=== PATIENT | female | born 1950 | race Caucasian/White ===

== ENCOUNTER 2022-10-04 09:15 | Outpatient (RCR) | payer MEDICARE, SELFPAY | END 2022-10-22 16:00 | disposition home or self-care (01) | PROVIDERS: PCP Family Medicine; Visit Provider Family Medicine | DX: M25.512 Pain in left shoulder (principal); Z51.89 Encounter for other specified aftercare | CPT/HCPCS: 97110; 97162 ==

== ENCOUNTER 2022-11-30 09:26 | Outpatient (RCR) | payer MEDICARE, SELFPAY ==
--- NOTE | 2022-11-27 10:44 | URNOTE ---
Request received for authorization for Rituxan ([id number]). Prior authorization is not required as services are based on medical necessity and follow Medicare guidelines.
[2022-11-30 09:49] VITALS: BP 131/87; PULSE 84; RESP 16; TEMP 36.1; O2SAT 95
[2022-11-30] MEDS: ACETAMINOPHEN 325 MG TABLET 975 MG PO (10:02)
[2022-11-30] MEDS: diphenhydrAMINE 25 MG CAPSULE 50 MG PO (10:02)
[2022-11-30] MEDS: METHYLPREDNISOLONE SOD SUCC 62.5 MG/ML (125) 125 MG IVP (10:13)
== END 2023-05-29 23:59 | disposition home or self-care (01) ==
LOC: CCIC 09:26
PROVIDERS: PCP Family Medicine; Referring Provider Family Medicine; Visit Provider Clinical Nurse Specialist
DX: M06.9 Rheumatoid arthritis, unspecified (principal)
CPT/HCPCS: 96376; 96413; 96415; A9270; J2930; J7030; J9312

== ENCOUNTER 2023-04-25 13:00 | Outpatient (RCR) | payer MEDICARE, SELFPAY | END 2023-08-23 23:59 | disposition home or self-care (01) | PROVIDERS: PCP Family Medicine; Visit Provider Family Medicine | DX: S76.311A Strain of muscle, fascia and tendon of the posterior muscle group at thigh level, right thigh, initial encounter (principal); S86.111A Strain of other muscle(s) and tendon(s) of posterior muscle group at lower leg level, right leg, initial encounter; H81.10 Benign paroxysmal vertigo, unspecified ear; Z51.89 Encounter for other specified aftercare | CPT/HCPCS: 95992; 97110; 97140; 97162; 97535 ==

== ENCOUNTER 2023-10-08 09:15 | Outpatient (RCR) | payer MEDICARE, SELFPAY | END 2024-02-05 23:59 | disposition home or self-care (01) | PROVIDERS: PCP Family Medicine; Visit Provider Physician Assistant | DX: H81.13 Benign paroxysmal vertigo, bilateral (principal); H81.93 Unspecified disorder of vestibular function, bilateral; Z51.89 Encounter for other specified aftercare | CPT/HCPCS: 97110; 97140; 97162 ==

== ENCOUNTER 2024-01-14 08:19 | Outpatient (RCR) | payer MEDICARE, SELFPAY ==
--- NOTE | 2024-01-07 13:52 | URNOTE ---
PRior auth is not required for Jacobo ([id number]). Pt has medicare, services are based on medical necessity and follow medicare guidelines.
[2024-01-14] VITALS (9 sets, daily range): BP systolic 96–145; BP diastolic 57–91; PULSE 61–77; RESP 16; TEMP 36.3–36.7; O2SAT 94–97
[2024-01-14] MEDS: ACETAMINOPHEN 325 MG TABLET 975 MG PO (08:57)
[2024-01-14] MEDS: diphenhydrAMINE 25 MG CAPSULE 50 MG PO (08:57)
[2024-01-14] MEDS: METHYLPREDNISOLONE SOD SUCC 62.5 MG/ML (125) 125 MG IVP (09:00)
[2024-01-14] MEDS: RITUXIMAB-ABBS (Truxima) 1,000 MG, TUBING PRIMARY 1 EACH in 0.9 % SODIUM CHLORIDE 1000 ... 50 MG IV (09:46)
== END 2024-07-12 23:59 | disposition home or self-care (01) ==
LOC: CCIC 08:19
PROVIDERS: PCP Family Medicine; Referring Provider Family Medicine; Visit Provider Internal Medicine Hematology & Oncology
DX: M06.9 Rheumatoid arthritis, unspecified (principal); M81.0 Age-related osteoporosis without current pathological fracture
CPT/HCPCS: 96376; 96413; 96415; A9270; J2930; J7030; Q5115

== ENCOUNTER 2024-11-27 08:35 | Outpatient (RCR) | payer MEDICARE, SELFPAY ==
[2024-11-27 08:50] VITALS: BP 123/81; PULSE 87; RESP 18; TEMP 36.6; O2SAT 98
[2024-11-27] MEDS: ACETAMINOPHEN 325 MG TABLET 975 MG PO (09:18)
[2024-11-27] MEDS: METHYLPREDNISOLONE SOD SUCC 62.5 MG/ML (125) 125 MG IVP (09:18)
[2024-11-27] MEDS: 0.9 % SODIUM CHLORIDE 500 ML IV (09:37)
[2024-11-27] MEDS: SODIUM CHLORIDE 0.9 % (FLUSH) 10 ML SYRINGE IVF (09:37)
[2024-11-27] MEDS: RITUXIMAB-ABBS (Truxima) 1,000 MG, TUBING PRIMARY 1 EACH in 0.9 % SODIUM CHLORIDE 1000 ... 50 MG IV (09:51)
== END 2025-05-26 23:59 | disposition home or self-care (01) ==
LOC: CCIC 08:35
PROVIDERS: PCP Family Medicine; Referring Provider Family Medicine; Visit Provider Clinical Nurse Specialist
DX: M06.9 Rheumatoid arthritis, unspecified (principal); M81.0 Age-related osteoporosis without current pathological fracture
CPT/HCPCS: 96375; 96413; 96415; A9270; J2919; J7030; Q5115

== ENCOUNTER 2025-01-20 12:41 | Inpatient (IN) | payer MEDICARE, SELFPAY ==
[2025-01-20] VITALS (29 sets, daily range): BP systolic 104–145; BP diastolic 56–104; PULSE 68–79; RESP 18–20; TEMP 36.1–37.1; O2SAT 95–100; BMI 20.3; BMI 21.8
--- NOTE | 2025-01-20 | CRLHL7_ITS ---
For Patients: As a result of the Century Cures Act, medical imaging exams and procedure reports are released immediately into your electronic medical record. You may view this report before your referring provider. If you have questions, please contact your health care provider. Indication: SOB, COUGH Technique: AP view of the chest. Comparison: None. Findings: Low lung volumes. Normal cardiomediastinal silhouette. No focal consolidation, pleural effusions, or visualized pneumothorax. Impression: No acute cardiopulmonary disease. Dictated by Candelario Gallardo MD @ 01/20/2025 3:50:42 PM (Electronically Signed)
--- OUTSIDE RECORDS SUMMARY | 2025-01-20 12:43 | XMS_ITS | Clinical Summary ---
Author Organization [facility] Address [address] [place] [address] Care Team Providers Care Lead Ruby On Rails Developer Name Role Phone Darling Wharton MD Primary Care Provider [phone] Source Comments You are receiving this document as you are listed as the primary care provider,follow-up provider, or the patient has been referred to you for consultation.This is in compliance with the Medicare and[facility] EHR Incentive Program,which states Providers who transition their patient to another setting of careor provider of care or refers their patient to another provider of care shouldprovide summary care record for each transition of care or referral. Auto I.D. Allergies Active Allergy Reactions Criticality Noted Date Comments Review Contrast Media 08/13/2007 PN: LW CM1: >>> NO CONTRAST ADVERSE REACTION <<< Reaction : Medications levothyroxine (SYNTHROID) 112 MCG tablet Take 1 tablet by mouth daily (every 24 hours). LW Addl Instr:MUST GET FURTHER REFILLS FROM PRIMARY DOCTOR. Indicated for: Hypothyroidism 30 1 12/25/19 07 Active acetaminophen (TYLENOL ARTHRITIS) 650 MG controlled release tablet Take 1 Tablet (650 mg) by mouth. 01/09/20 16 Active alendronate (FOSAMAX) 70 MG tablet Take 1 Tablet (70 mg) by mouth once every week. Active lisinopril-hy droCHLOROthia zide (PRINZIDE) 20-25 MG tablet Take 1 Tablet by mouth daily. Active folic acid 1 MG tablet take 1 tablet by mouth every day 90 Tablet 3 06/25/20 24 Active predniSONE (DELTASONE) 5 MG tablet For RA flare: take 15 mg daily x1 wk, 10 mg daily x1 wk, then 5 mg daily x1 wk, then stop 42 Tablet 1 11/03/20 24 Active methotrexate 2.5 MG tabletIndicat ions:Rheumato id arthritis involving multiple sites with positive rheumatoid factor (HRC) TAKE 6 TABLETS BY MOUTH ONCE EVERY WEEK. 72 Tablet 1 12/28/19 25 Active methotrexate 2.5 MG tabletIndicat ions:Rheumato id arthritis involving multiple sites with positive rheumatoid factor (HRC) TAKE 6 TABLETS BY MOUTH ONCE EVERY WEEK. 72 Tablet 1 07/06/20 24 2024 Discontinued Active Problems Problem Noted Date Diagnosed Date Prediabetes 08/01/2023 Post-menopausal osteoporosis 10/06/2020 Long-term use of immunosuppressant medication Lymphoma 06/10/2012 Hx of splenectomy 02/15/2012 Iron deficiency anemia, unspecified 03/06/2007 Osteoporosis 03/06/2007 Hypothyroidism 03/06/2007 Rheumatoid arthritis 04/24/2003 Overview (07/10/2017): Arthritis Rheumatoid Encounters Date Type Department Care Team Description 12/26/2024 Refill Rheumatology at [address] [address] Alla Hunt MD Refill (methotrexate 2.5 MG tablet [Pharmacy Med Name: METHOTREXATE 2.5 MG TABLET]) 11/05/2024 Notes/Orders Rheumatology at [address] [address] Alla Hunt MD 11/03/2024 11:45 AM CONCRETE PILE DRIVER OPERATOR Lab Visit [place] [address] [place] [address] Rheumatoid arthritis involving multiple sites with positive rheumatoid factor (HRC); High risk medication use 11/03/2024 11:25 AM CONCRETE PILE DRIVER OPERATOR Ancillary Procedure [place] [address] [place] [address] Alla Hunt MD Rheumatoid arthritis involving multiple sites with positive rheumatoid factor (HRC) 11/03/2024 10:45 AM CONCRETE PILE DRIVER OPERATOR Office Visit Rheumatology at [address] [place] [address] Alal Hunt MD Rheumatoid arthritis involving multiple sites with positive rheumatoid factor (HRC) (Primary Dx); High risk medication use; Osteoporosis without pathological fracture (HRC); Lymphoma, unspecified body region, unspecified lymphoma type (HRC) 11/03/2024 Notes/Orders Rheumatology at [address] [address] Alla Hunt MD from Last 3 Months Immunizations Immunization Administration Dates Next Due Flu Vac (3+ yrs) 08/03/2013, 2,08/21/2011,2009,09/10/2007,09/18/2006,09/09/2006,1 11/24/2004 Flu Vac Preserv Free (3+yrs) 08/08/2009 H1n1 Miv Sanofi 3+ Yr (Injected) 11/28/2009 Influenza IIV3 (Trivalent) [facility] 65+ [facility] ([address]) 08/02/2020,09/02/2019,07/23/2018,2016,08/08/2016,08/04/2015,08/03/2014 Influenza IIV4 (Quadrivalent ) Fluad, 65+ Yrs 07/31/2023,07/27/2022 Influenza IIV4 (Quadrivalent ) Fluzone, 65+ Yrs 07/22/2021 Influenza aIIV3 65+ Years (Fluad) 2023,08/02/2020,08/26/2019,2016 Influenza, Unspecified Formulation 08/02/2020, Moderna COVID-19 12+ 08/05/2024,09/20/2023 Moderna Monovalent 12+ 06/11/2022,2020,03/16/2021,2020 PCV13 (Prevnar) 01/06/2015 PPSV23 (Pneumovax) 01/09/2016,11/14/1999 RSV Arexvy 09/23/2024 Td (7+ yrs) 12/07/2003 Td (Tdvax) 12/07/2003 Tdap 04/27/2024,12/24/2013 Zoster (Zostavax) 07/02/2011 Zoster RZV (Shingrix) 05/19/2019,02/16/2019 Social History Tobacco Use Types Packs/Day Years Used Date Smoking Tobacco: Never Smokeless Tobacco: Never Comments Unknown Sex and Gender Information Value Date Recorded Sex Assigned at Not on file Legal Sex Female 9:40 AM CDT Gender Identity Not on file Sexual Orientation Not on file Last Filed Vital Signs Vital Sign Reading Time Taken Comments Blood Pressure 123/85 11/03/2024 10:26 AM CONCRETE PILE DRIVER OPERATOR Pulse 87 11/03/2024 10:26 AM CONCRETE PILE DRIVER OPERATOR Temperature 36.4 C (97.6 F) 10/06/2020 10:50 AM CONCRETE PILE DRIVER OPERATOR Respiratory Rate 20 01/01/2018 11:13 AM CONCRETE PILE DRIVER OPERATOR Oxygen Saturation - - Inhaled Oxygen Concentration - - Weight 49.4 kg (109 lb) 11/03/2024 10:26 AM CONCRETE PILE DRIVER OPERATOR Height 157.5 cm (5' 2) 10/23/2022 11:37 AM CONCRETE PILE DRIVER OPERATOR pt reported. Body Mass Index 19.94 10/23/2022 11:37 AM CONCRETE PILE DRIVER OPERATOR Plan of Treatment Upcoming Encounters Date Type Department Care Team (Late st Contact Info) Description 05/04/2025 11:45 AM CDT Telemedicine Rheumatology at [place] [address] [place] [address]. [place] [address] Alla Hunt MD [address] [place] [id number] Health Maintenance Due Date Last Done Comments Medicare Annual Wellness Visit 1950 Hib (1 of 1 - Risk 1-dose series) 01/20/1950 MCV4 (1 - Risk 2-dose series) 1950 Meningococcal B (1 of 5 - Increased Risk) 1958 COVID-19 Vaccine ( season) 2025 08/05/2024, 09/20/2023, 06/11/2022, Additional history exists Prediabetes: HGBA1C 08/05/2025 08/05/2024, DTaP/Tdap/Td (3 - Tdap) 04/27/2034 04/27/20, 12/24/2013, 12/07/2003 Pneumococcal 50+ Yrs Completed 01/09/2016, 01/06/2015, 11/14/1999 Zoster/Shingles Completed 05/19/2019, 04/11/2018, 07/02/2011 Hep C Screening (Preventive Services) Completed 10/23/2022 Dexa Completed 07/31/2023, 07/19, 07/26/2021, Additional history exists Influenza Completed 08/05/2024, 07/19, 07/27/2022, Additional history exists RSV Completed 09/23/2024 HepA Aged Out No longer eligi ble based on patient's age to complete this topic HepB Aged Out No longer eligi ble based on patient's age to complete this topic IPV (Polio) Aged Out No longer eligi ble based on patient's age to complete this topic Procedures Procedure Name Priority Date/Time Associated Diagnosis Comments COMPLETE BLOOD COUNT-W/DIFF Routine 11/03/2024 11:43 AM CONCRETE PILE DRIVER OPERATOR Rheumatoid arthritis involving multiple sites with positive rheumatoid factor (HRC) High risk medication use IMMUNOGLOBULINS (G,A,M) Routine 11/03/20 11:43 AM CONCRETE PILE DRIVER OPERATOR Rheumatoid arthritis involving multiple sites with positive rheumatoid factor (HRC) High risk medication use C-REACTIVE PROTEIN Routine 11/03/2024 11 :43 AM CONCRETE PILE DRIVER OPERATOR Rheumatoid arthritis involving multiple sites with positive rheumatoid factor (HRC) High risk medication use SEDIMENTATION RATE (ESR) Routine 11/03/2024 11:43 AM CONCRETE PILE DRIVER OPERATOR Rheumatoid arthritis involving multiple sites with positive rheumatoid factor (HRC) High risk medication use CREATININE / GFR Routine 11/03/2024 11:4 3 AM CONCRETE PILE DRIVER OPERATOR Rheumatoid arthritis involving multiple sites with positive rheumatoid factor (HRC) High risk medication use ALT (SGPT) Routine 11/03/2024 11:43 AM CONCRETE PILE DRIVER OPERATOR Rheumatoid arthritis involving multiple sites with positive rheumatoid factor (HRC) High risk medication use CBC AND DIFFERENTIAL PANEL Routine 11/03/2024 11:43 AM CONCRETE PILE DRIVER OPERATOR Rheumatoid arthritis involving multiple sites with positive rheumatoid factor (HRC) High risk medication use XR HANDS 1 VIEW BILAT ARTHRITIS Routine 11/03/2024 11:26 AM CONCRETE PILE DRIVER OPERATOR Rheumatoid arthritis involving multiple sites with positive rheumatoid factor (HRC) HEPATITIS C ANTIBODY, WITH REFLEX Routine 10/23/2022 12:59 PM CONCRETE PILE DRIVER OPERATOR Rheumatoid arthritis involving multiple sites with positive rheumatoid factor (HRC) High risk medication use from Last 3 Months or Most Recently Relevant to Health Maintenance Results * Creatinine / GFR (11/03/2024 11:43 AM CONCRETE PILE DRIVER OPERATOR) Creatinine 0.65 0.55 - 1.02 mg/dL 11/03/2024 12:56 PM [place] [address] [facility]ORY GFR, Estimated >60 >60 mL/min/1.7 3m2 11/03/2024 12:56 PM CONCRETE PILE DRIVER OPERATOR [place] [address] [facility] Blood Venipuncture / Unknown 11/03/2024 11:43 AM CONCRETE PILE DRIVER OPERATOR 11/03/2024 11:43 AM CONCRETE PILE DRIVER OPERATOR us Alla Hunt MD LAB_1 Final Resu lt Performing Organization Address City/State/[facility] Co de Phone Number [place] [address] [place] [phone], [facility] * (ABNORMAL) Complete Blood Count-W/Diff (11/03/2024 11:43 AM [facility]) WBC 7.8 3.5 - 10.5 x10(9)/L 11/03/2024 12:03 PM CONCRETE PILE DRIVER OPERATOR [facility] 385 LABORATORY RBC 4.69 3.90 - 5.03 x10(12)/L 11/03/2024 12:03 PM [facility] 3850 LABORATORY Hemoglobin 14.9 12.0 - 15.5 g/dL 11/03/2024 12:03 PM [place] [address] [facility] HCT 45.1(H) 34.9 - 44.5 % 11/03/2024 12:03 PM [place] [address] [facility] MCV 96.2 80.0 - 100.0 fL 11/03/2024 12:03 PM [place] [address] [facility] MCH 31.8 27.6 - 33.3 pg 11/03/2024 12:03 PM [place] [address] [facility] MCHC 33.0 31.5 - 35.2 g/dL 11/03/2024 12:03 PM [place] [address] [facility] RDW 15.2 11.9 - 15.5 % 11/03/2024 12:03 PM [place] [address] [facility] Platelets 354 150 - 450 x10(9)/L 11/03/2024 12:03 PM [place] [address] [facility] Automated NRBC 0 <=0 /100 WBC 11/03/2024 12:03 PM [place] [address] [facility] Neutrophil Absolute 5.4 1.7 - 7.0 10(9)/L 11/03/2024 12:03 PM [place] [address] [facility] Lymphocyte Absolute 1.3 1.0 - 4.8 10(9)/L 11/03/2024 12:03 PM [place] [address] [facility] Monocyte Absolute 0.9 0.2 - 0.9 10(9)/L 11/03/2024 12:03 PM [place] [address] [facility] Eosinophil Absolute 0.2 0.0 - 0.5 10(9)/L 11/03/2024 12:03 PM [place] [address] [facility] Basophil Absolute 0.1 0.0 - 0.3 10(9)/L 11/03/2024 12:03 PM [place] [address] [facility] Immature Granulocyte % 0.3 0.0 - 0.5 % 11/03/2024 12:03 PM [place] [address] [facility] Blood Venipuncture / Unknown 11/03/2024 11:43 AM CONCRETE PILE DRIVER OPERATOR 11/03/2024 11:43 AM CONCRETE PILE DRIVER OPERATOR us Alla Hunt MD LAB_1 Final Resu lt Performing Organization Address [facility] Co de Phone Number [facility] 3850 LABORATORY [address] [place] [address], [facility] * Immunoglobulins (G,A,M) (11/03/2024 11:43 AM CONCRETE PILE DRIVER OPERATOR) IgA, Serum 170 69 - 517 mg/dL 11/03/2024 4:54 PM CONCRETE PILE DRIVER OPERATOR [facility] IgG, Serum 633 552 - 1,631 mg/dL 11/03/2024 4:54 PM CONCRETE PILE DRIVER OPERATOR [facility] IgM, Serum 45 33 - 293 mg/dL 11/03/2024 4:54 PM CONCRETE PILE DRIVER OPERATOR [facility] Blood Venipuncture / Unknown 11/03/2024 11:43 AM CONCRETE PILE DRIVER OPERATOR 11/03/2024 11:43 AM CONCRETE PILE DRIVER OPERATOR Alla Hunt MD LAB_1 Final [facility] Performing Organization Address [facility] de Phone Number [facility] [address] [place], [place] [address] * C-Reactive Protein (11/03/2024 11:43 AM CONCRETE PILE DRIVER OPERATOR) Pathologist [facility] C-Reactive Protein <0.5 0.0 - 0.5 mg/dL 11/03/2024 12:56 PM CONCRETE PILE DRIVER OPERATOR [place] [address] [facility] Blood Venipuncture / Unknown 11/03/2024 11:43 AM CONCRETE PILE DRIVER OPERATOR 11/03/2024 11:43 AM CONCRETE PILE DRIVER OPERATOR us Alla Hunt MD LAB_1 Final Resu Performing Organization Address [facility] de Phone Number [facility] [address] LABORATORY [address] [place] [address], [facility] * ALT (SGPT) (11/03/2024 11:43 AM CONCRETE PILE DRIVER OPERATOR) ALT (SGPT) 17 <=55 U/L 11/03/2024 12:56 PM CONCRETE PILE DRIVER OPERATOR [facility] 385 LABORATORY Blood Venipuncture / Unknown 11/03/2024 11:43 AM CONCRETE PILE DRIVER OPERATOR 11/03/2024 11:43 AM CONCRETE PILE DRIVER OPERATOR us Alla Hunt MD LAB_1 Final Resu lt Performing Organization Address [facility] Co de Phone Number [place] [address] LABORATORY [address] [place] [address], [facility] * ESR (11/03/2024 11:43 AM CONCRETE PILE DRIVER OPERATOR) [facility] Signature Sedimentation Rate 6 0 - 20 mm/hr 11/03/2024 12:55 PM CONCRETE PILE DRIVER OPERATOR [facility] 385 LABORATORY Blood Venipuncture / Unknown 11/03/2024 11:43 AM CONCRETE PILE DRIVER OPERATOR 11/03/2024 11:43 AM CONCRETE PILE DRIVER OPERATOR us Alla Hunt MD LAB_1 Final Resu lt Performing Organization Address [facility] de Phone Number [place] [address] [facility]OR[facility]ORY [address] [place] [address], [facility] * XR Hands 1 View Bilat Arthritis (11/03/2024 11:26 AM CONCRETE PILE DRIVER OPERATOR) Anatomical Region Laterality Modality Upper Extremity, Hand Digital Ra diography 11/03/2024 11:2 1 AM CONCRETE PILE DRIVER OPERATOR Narrative 11/03/2024 1:47 PM CONCRETE PILE DRIVER OPERATOR COMPARISON: 12/06/2010 FINDINGS: Symmetric bilateral carpal collapse/destruction with distal migration of the radius and advanced arthritic changes of the radiocarpal and carpometacarpal joints compatible with sequelae of advanced rheumatoid arthritis. Presumed marked erosive changes of the distal ulna bilaterally. There is moderate arthrosis of the right first through third MCP joints. Mild arthrosis of the first through third left MCP joints. The interphalangeal joint spaces of both hands are relatively preserved. Procedure Note Gautam Hankins MD - 11/03/2024 COMPARISON: 12/06/2010 FINDINGS: Symmetric bilateral carpal collapse/destruction with distal migration ofthe radius and advanced arthritic changes of the radiocarpal andcarpometacarpal joints compatible with sequelae of advanced rheumatoidarthritis. Presumed marked erosive changes of the distal ulna bilaterally.There is moderate arthrosis of the right first through third MCP joints.Mild arthrosis of the first through third left MCP joints. Theinterphalangeal joint spaces of both hands are relatively preserved. Alla Hunt MD RAD GD Final Resu lt * Hepatitis C Antibody, with Reflex (10/23/2022 12:59 PM CONCRETE PILE DRIVER OPERATOR) Hepatitis C Antibody Negative (Non Reactive) Negative (Non Reactive) 10/23/2022 10:28 PM CONCRETE PILE DRIVER OPERATOR [facility] Comment:Antibodies to HCV no t detected. Does not exclude the possiblity of exposure to HCV. Blood Venipuncture / Unknown 10/23/2022 12:59 PM CONCRETE PILE DRIVER OPERATOR 10/23/2022 12:59 PM CONCRETE PILE DRIVER OPERATOR Alla Hunt MD LAB_1 Final Resu lt [facility] [address] from Last 3 Months or Most Recently Relevant to Health Maintenance Insurance MEDICARE Care Teams Lead Ruby On Rails Developer Relationship Specialty Start Date End Date Darling Wharton MD [address] [place] [address] PCP - General Family Practice 01/01/18
--- OUTSIDE RECORDS SUMMARY | 2025-01-20 12:43 | XMS_ITS ---
Author Organization [employer] Address [address] [place] [address] Care Team Providers Care Leather Cleaner Name Role Phone Darling Wharton MD Primary Care Provider [phone] Active Problems Problem Noted Date Diagnosed Date Prediabetes 08/01/2023 Post-menopausal osteoporosis 10/06/2020 Long-term use of immunosuppressant medication Lymphoma 06/10/2012 Hx of splenectomy 02/15/2012 Iron deficiency anemia, unspecified 03/06/2007 Osteoporosis 03/06/2007 Hypothyroidism 03/06/2007 Rheumatoid arthritis 04/24/2003 Overview (07/10/2017): Arthritis Rheumatoid Current Treatment and Therapy Plans No current plan information found. Other Current Plans riTUXimab IV infusion - FIXED DOSE* Plan Start Date:01/01/2024 Plan Provider:Alla Hunt MD Linked Problems Rheumatoid arthritis involvi ng multiple sites with positive rheumatoid factor (HRC) Treatment Medications acetaminophen (TYLENOL)ALBUt marquita sulfate HFAalteplase (CATHFLO ACTIVASE)diphenhydrAMINE (BENADRYL)EPINEPHrine (EPIPEN)famotidine (PEPCID)heparinheparin PF (Pork)meperidine (DEMEROL)methylPREDNISolone sodium succinate PF (SOLU-medrol)ritTUXimab-pvvr (RUXIENCE) infusion 251mg-1000mgsodium chloride 0.9 %sodium chloride 0.9% Past Treatment and Therapy Plans
--- OUTSIDE RECORDS SUMMARY | 2025-01-20 12:43 | XMS_ITS | Encounter Summary ---
Author Organization [employer] Address [address] [place] [address] Care Team Providers Care Packing Tractor Machine Operator Name Role Phone Darling Wharton MD Primary Care Provider [phone] Reason for Visit * Reason Comments Refill methotrexate 2.5 MG tablet [Pharmacy Med Name: METHOTREXATE 2.5 MG TABLET] Encounter Details Date Type Department Care Team (Late st Contact Info) Description 12/26/2024 Refill Rheumatology at [address] [place] [address] Catie Hunt MD [address] [place] [id number] Refill (methotrexate 2.5 MG tablet [Pharmacy Med Name: METHOTREXATE 2.5 MG TABLET]) Social History Tobacco Use Types Packs/Day Years Used Date Smoking Tobacco: Never Smokeless Tobacco: Never Comments Unknown Sex and Gender Information Value Date Recorded Sex Assigned at Not on file Legal Sex Female 9:40 AM CDT Gender Identity Not on file Sexual Orientation Not on file documented as of this encounter Nursing Notes * Beatriz House RN - 12/28/2024 7:03 AM CST Renewed medication per medication refill standing order. Requested Prescriptions Signed Prescriptions Disp Refills methotrexate 2.5 MG tablet 72 Tablet 1 Sig: TAKE 6 TABLETS BY MOUTH ONCE EVERY WEEK. Authorizing Provider: CATIE HUNT Ordering User: [facility] * Zacarias Desouza [employer] - 12/26/2024 9:38 AM CST methotrexate 2.5 MG tablet [Pharmacy Med Name: METHOTREXATE 2.5 MG TABLET] Medication started: 03/05/2019 Last ordered by CATIE HUNT A: 07/06/2024 (173 days ago) QTY: 72, Refills: 1, Sig: take 6 tablets by mouth once every week. (unchanged) -> Refill x 3 months (until due for a(n) ALT check, CBC w/ Diff check, Cr check and eGFR check) Last qualifying visit: 11/03/2024 (in Rheumatology) Next scheduled visit: 05/04/2025 (in Rheumatology) Cr: 0.65 mg/dL on 11/03/2024 ALT: 17 U/L on 11/03/2024 CBC w/ Diff: Completed on 11/03/2024 eGFR: >60 ml/min on 11/03/2024 [employer] Embedded Refills, Reference: [id number], 12/26/2024 9:38:11 AM Cain VENTURA: RHEUM PN REFILL [[id number]] ([id number]) ER documented in this encounter Plan of Treatment Upcoming Encounters Date Type Department Care Team (Late st Contact Info) Description 05/04/2025 11:45 AM CDT Telemedicine Rheumatology at [address] [facility] [place] [address] Catie Hunt MD [address] [place] [address] documented as of this encounter Visit Diagnoses Diagnosis Rheumatoid arthritis involving multiple sites with positive rheumatoid factor (HRC) documented in this encounter Care Teams Packing Tractor Machine Operator Relationship Specialty Start Date End Date aDrling Wharton MD [address] [place] [address] PCP - General Family Practice 01/01/18 documented as of this encounter
--- OUTSIDE RECORDS SUMMARY | 2025-01-20 12:43 | XMS_ITS | Clinical Summary ---
Author Organization [facility] Address [address] [place] [id number] Care Team Providers Care Supervisor Delivery Department Name Role Phone Jung Newman MD, Melissa Jean MD Primary Care Provider [phone] Allergies Active Allergy Reactions Criticality Noted Date Comments Unlisted Allergen (Include Detail In Comments) Runny Nose 03/26/2023 Environmental Allergies Medications acetaminophen SR (TYLENOL ARTHRITIS PAIN) 650 mg Extended-Release tablet Take 1 tablet by mouth every 8 hours if needed. Max acetaminophen dose: 4000mg in 24 hrs. 0 01/09/20 16 Active methotrexate (RHEUMATREX) 2.5 mg tabletIndication s:Rheumatoid arthritis involving right ankle with positive rheumatoid factor (HC) Take 6 tablets by mouth once weekly. 32 tablet 2 08/31/20 16 Active medication order composer RITUXAN infusion in Nov, 2022. Patient receives RITUXAN Q yearly and usually in November at [facility] and though an Upper Extremity. 0 03/18/20 23 Active folic acid 1 mg tabletIndication s:Rheumatoid arthritis, involving unspecified site, unspecified whether rheumatoid factor present (HC) Take 1 Tablet (1 mg) by mouth once daily. 90 Tablet 3 04/17/20 24 Active calcium-vitamin D3-vitamin K (Viactiv) 650 mg-12.5 mcg-40 mcg chewIndications: Osteoporosis, unspecified osteoporosis type, unspecified pathological fracture presence Chew 1 Tablet by mouth two times daily. 180 Tablet 3 08/05/20 24 Active alendronate (FOSAMAX) 70 mg tabletIndication s:Osteoporosis, unspecified osteoporosis type, unspecified pathological fracture presence Take 1 Tablet (70 mg) by mouth once a week in the morning. Take on empty stomach with full glass of water. Do not lie down for 1 hr. 13 Tablet 3 08/05/20 24 Active lisinopril-hydro chlorothiazide, 20-25 mg, (PRINZIDE, ZESTORETIC) 20-25 mg per tabletIndication s:HTN (hypertension) Take 1 Tablet by mouth once daily. 90 Tablet 3 08/05/20 24 Active levothyroxine (SYNTHROID) 88 mcg tabletIndication s:Hypothyroidism , unspecified type Take 1 Tablet (88 mcg) by mouth before breakfast. 90 Tablet 09/11/20 24 Active predniSONE (DELTASONE) 20 mg tabletIndication s:Acute midline low back pain with left-sided sciatica Take with food in mornin tabs daily for 3 days, 1 tab daily for 3 days, and 1/2 tab daily for 4 days. 11 Tablet 01/12/20 25 Active Active Problems Problem Noted Date Diagnosed Date History of non-Hodgkin's lymphoma 04/01/2024 Hyperlipidemia 04/01/2024 PSVT (paroxysmal supraventricular tachycardia) 0 04/01/2024 HTN (hypertension) 04/01/2024 Prediabetes 08/01/2023 Chronic pain of right knee 12/14/2015 Overview (12/20/2015): Previous right knee aspiration and cortisone injection by Dr. Piña. Ultrasound guidance used for some of these injections. November 2015: Right knee aspirated by Dr. Abdullahi Lang with cortisone injection. Joint fluid analysis was negative for crystals. 1 week post injection pain 100%, swelling gone. Adenomatous colon polyp 08/04/2015 Overview (12/30/2020): Colonoscopy 07/2015 polyp repeat in 5 years Colonoscopy 12/2020 polyp, repeat in 7 years Hx of splenectomy 02/15/2012 Unspecified essential hypertension 04/21/2007 Rheumatoid arthritis(714.0) 03/06/2007 Symptomatic inflammatory kristian gerardo in diseases classified elsewhere 03/06/2007 Unspecified hypothyroidism 03/06/2007 Osteoporosis, unspecified 03/06/2007 Iron deficiency anemia, unspecified 03/06/2007 Resolved Problems Problem Noted Date Diagnosed Date Resolved Date Lymphoma 12/18/2012 04/01/2024 Overview (03/26/2023): Diagnosed 2011. Followed for 5 years following diagnosis by oncology (Dr. Wray). 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 Office Visit [facility] [address] [place] [address] Sherice Olivas PA Back Pain 01/12/2025 Travel from Last 3 Months Immunizations Name Administration Dates Next Due COVID-19 VACCINE SPIKEVAX (M ODERNA 50MCG/0.5ML) 12YO+ PFS 08/05/2024 COVID-19 vaccine (Moderna 100mcg/0.5mL) PF, MDV 06/11/2022,10/27/2021,03/16/2021,2020 Influenza A (H1N1), Inactivated 11/28/2009 Influenza, High-dose Inactivated 019,07/23/2018,08/06/2017,2015,08/04/2015,08/03/2014 Influenza, High-dose Quadriv alent Inactivated 07/22/2021 Influenza, IIV3 (Age 6-35 mos) 08/08/2009 Influenza, IIV3 (Age >=3 years) 08/03/20 13,07/31/2012,08/21/2011,2009,09/10/2007,09/18/2006,09/09/2006,1 11/24/2004 Influenza, Inactivated AIIV4 (Age 65+ Years) Preserv Free 07/31/2023,07/27/2022 Influenza, Inactivated IIV3 (Age 65+ Years) Preserv Free 08/05/2024,08/02/2020 Pneumococcal Poly,23-Valent (Pneumovax) 01/09/2016,11/14/1999 Pneumococcal conj 13-Valent (Prevnar 13) 01/06/2015 Td (Age >=7 Years) 12/07/2003 Tdap 04/27/2024,12/24/2013 Zoster (Shingrix-RZV, recombinant) 05/19/2019, Zoster (Zostavax-ZVL, live) 07/02/2011 Family History Medical History Relation Name Comments Good Health Brother 2 Good Health Brother 3 Cancer-breast Maternal Aunt Stroke Maternal Grandfather Heart Disease Maternal Grandmother Asthma Paternal Grandmother Other Sister 1 MS Cancer-breast Sister 2 Good Health Sister 2 Cancer-ovarian No Family History Relation Name Status Comments Brother 1 MELANOMA Brother 2 Brother 3 Father (Age 41) farm accid ent Maternal Aunt Maternal Grandfather Maternal Grandmother Mother (Age 60s) ACCIDENT Paternal Grandmother Sister 1 Sister 2 Social History Tobacco Use Types Packs/Day Years Used Date Smoking Tobacco: Never Smokeless Tobacco: Never Tobacco Cessation:Counseling Given: Yes Alcohol Use Standard Drinks/Week Comments No 0 (1 standard drink = 0.6 oz pur e alcohol) PHQ-2 Answer Date Recorded PHQ-2 TOTAL SCORE 0 08/05/2024 Social Connections Answer Date Recorded Do you often feel lonely or isolated from those around you? 0 01/12/2025 Financial Resource Strain Answer Date R ecorded Difficulty of Paying Living Expenses 3 01/12/2025 Difficulty of Paying Living Expenses Not on file 01/12/2025 Food Insecurity Answer Date Recorded Do you worry your food will run out before you are able to buy more? 1 01/12/2025 Transportation Needs Answer Date Record ed Does lack of transportation keep you from medica l appointments? 1 01/12/2025 Does lack of transportation keep you from work, meetings or getting things that you need? 1 01/12/2025 Housing Stability Answer Date Recorded What is your housing situation today? 1 01/12/2025 Utilities Answer Date Recorded Do you have trouble paying f or utilities (for example, heat, electricity, water, phone)? 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 Gender Identity Not on file Sexual Orientation Not on file Occupation Industry Job Start Date Job End Date Not on file Not on file Not on file Not on file Obstetrics History Last Filed Vital Signs Vital Sign Reading Time Taken Comments Blood Pressure 152/91 01/12/2025 2:21 PM BONDING MACHINE SETTER Pulse 85 01/12/2025 2:21 PM BONDING MACHINE SETTER Temperature 36.9 C (98.4 F) 02/14/2024 9:58 AM CDT Respiratory Rate 20 03/26/2023 12:56 PM CDT Oxygen Saturation 98% 01/12/2025 2:21 PM BONDING MACHINE SETTER Inhaled Oxygen Concentration - - Weight 50.5 kg (111 lb 6.4 oz) 01/12/2025 2:21 P M BONDING MACHINE SETTER Height 157.6 cm (5' 2.05) 08/05/2024 8:25 AM CD T Body Mass Index 20.34 08/05/2024 8:25 AM CDT Plan of Treatment Health Maintenance Due Date Last Done Comments RSV vaccine for adults or (1 - 1-dose 75+ series) 2023 COVID-19 vaccine series ( season) 2024 08/05/2024, 09/20/2023, 06/11/2022, Additional history exists BMI (ht and wt on same day) for age 18+ 08/05/2025 08/05/2024, 07/31/2023, 03/26/2023, Additional history exists Depression screening for age 12+ 08/05/2025 08/05/2024, 08/01/2023, 07/31/2023, Additional history exists Medicare Wellness for age 65+ 08/06/2025, 07/31/2023, 07/27/2022, Additional history exists Tetanus booster 04/27/2034 04/27/2024, 0204/2014, 12/24/2013, Additional history exists Pneumococcal series for age 50+ Completed 01/09/2016, 01/06/2015, 01/06/2015, Additional history exists Zoster (shingles) series for age 50+ Completed 05/19/2019, 02/16/2019, 07/02/2011 Hepatitis C screening for ag e 18-79 Completed 06/01/2020 DEXA/DXA scan for age 65+ Completed 2022, 07/26/2021, 05/01/2018, Additional history exists Tdap Completed 04/27/2024, 12/24/2013 Influenza for age 65+ Completed 08/05/2024 , 07/31/2023, 07/27/2022, Additional history exists Procedures Procedure Name Priority Date/Time Associated Diagnosis Comments XR DXA BONE DENSITY 2 SITES AXIAL Routine 07/31/2023 11:16 AM CDT Osteoporosis, unspecified osteoporosis type, unspecified pathological fracture presence ANTI HCV Routine 06/01/2020 10:33 AM CDT Encounter for hepatitis C screening test for low risk patient from Last 3 Months or Most Recently Relevant to Health Maintenance Results * (ABNORMAL) XR DXA BONE DENSITY 2 SITES AXIAL (07/31/2023 11:16 AM CDT) Anatomical Region Laterality Modality Spine, HIPS, HIPL, HIPR Other Impressions 08/05/2023 8:28 AM CDT Osteoporosis. RECOMMENDATIONS: The National Osteoporosis Foundation recommends pharmacologic treatment for patients with T-scores of -2.5 or less, patients with prior history of fragility fractures, or patients with 10-year probability of greater than 3% at hips or greater than 20% of suffering major osteoporotic fractures. Recommend continued optimization of calcium and vitamin D intake through dietary means and/or supplementation and regular exercise. Consider pharmacologic therapy for osteoporosis. Follow-up bone density reading in 2 years if therapy initiated to assess therapeutic efficacy. Patient reported discontinuing fosamax, bone density mildly declined. Aurelia Sotelo PA-C [facility] 08/05/2023 Narrative 08/05/2023 8:28 AM CDT For Patients: Results are automatically released to your [facility] account once available, in compliance with federal regulations. This means that you may see your results before your provider has had a chance to review them. Please allow 2-3 business days for your provider to comment on the results. XR DXA Bone Mineral Density (BMD) EXAM LOCATION: [address] [address] PATIENT NAME: Rosie Reynaga DATE OF : 1950 EXAM DATE: 07/31/2023 REQUESTING PROVIDER: Darling Wharton MD GENDER AT : female HEIGHT: 5' 2.28 (07/31/2023) WEIGHT: 109 lb 12.8 oz (07/31/2023) MENOPAUSAL STATUS: Postmenopausal RACE/ETHNICITY: White RISK FACTORS: History of Fragility Fracture (at a major site), Rheumatoid Arthritis, Weight < 127 lbs., and White Race CURRENT MEDICATION FOR BONE LOSS: NONE INDICATION: Follow-up of existing osteoporosis COMPARISON DATE(S): 2020 DXA scans are compared to prior studies for a patient only when the two (or more) studies were performed on the same scanner. It is not possible to compare data generated on one scanner to data from another because there are not standards in DXA equipment. This applies even if the two scanners are made by the same environmental maintenance worker. PROCEDURE: Dual-energy x-ray absorptiometry performed with routine technique. Reporting is completed in the form of a T-score. The T-score represents the standard deviation from peak bone mass based on young healthy adult. A Z-score is used for diagnosis in premenopausal women, and for men under the age of 50. FINDINGS: RESULT LUMBAR SPINE L2 - L4 BMD: 1.086 g/cm2 T-Score: - 0.9 Z-Score: + 1.3 Change from prior in 2020: Decrease 1.2% RESULTS FEMUR Left femoral neck BMD: 0.702 g/cm2 T-Score: - 2.4 Z-Score: - 0.2 Change from prior in 2020: Decrease 3.0% Right femoral neck BMD: 0.744 g/cm2 T-Score: - 2.1 Z-Score: + 0.1 Change from prior in 2020: Increase 1.8%. Left hip BMD: 0.716 g/cm2 T-Score: - 2.3 Z-Score: - 0.2 Change from prior in 2020: Increase 1.0%. Right hip BMD: 0.661 g/cm2 T-Score: - 2.8 Z-Score: - 0.7 Change from prior in 2020: Decrease 1.0%. WHO criteria: Normal: T-score at or above -1 SD Osteopenia: T-score between -1.1 and -2.4 SD Osteoporosis: T-score at or below -2.5 SD FRAX RISK CALCULATION (USED FOR OSTEOPENIA ONLY): 10-year probability of major osteoporotic fracture: 26.2%. 10-year probability of hip fracture: 8.9%. us Darling Wharton MD DEXA Final Resul t * ANTI HCV (06/01/2020 10:33 AM CDT) HEPATITIS C ANTIBODY Non-React candy Non-React candy 06/01/2020 6:08 PM CDT [facility] [employer] [facility] Comment:Antibodies to HCV no t detected; does not exclude the possibility of exposure to HCV. Blood BLOOD SPECIMEN / Unknown Venipuncture / Unknown 06/01/2020 10:33 AM CDT 06/01/2020 10:33 AM CDT us Darling Wharton MD SEND OUTS Final Resul t [facility] 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
--- OUTSIDE RECORDS SUMMARY | 2025-01-20 12:43 | XMS_ITS | Encounter Summary ---
Author Organization [facility] Address [address] [place] [address] Care Team Providers Care Revenue Integrity Analyst Name Role Phone Darling Wharton MD Primary Care Provider [phone] Reason for Visit * Reason Comments Refill Encounter Details Date Type Department Care Team (Late st Contact Info) Description 07/04/2016 Refill Rheumatology at [address] [address] Jung Newman MD Refill Social History Tobacco Use Types Packs/Day Years Used Date Smoking Tobacco: Never Assessed Comments Unknown Sex and Gender Information Value Date Recorded Sex Assigned at Not on file Legal Sex Female 9:40 AM CDT Gender Identity Not on file Sexual Orientation Not on file documented as of this encounter Nursing Notes * Petty Orellana RN - 07/04/2016 9:53 AM CDT Last visit 04/25/16 Future visit 10/25/16 Last filled: 06/15/15 #270 R-3 Renewed medication per medication refill protocol. Requested Prescriptions Pending Prescriptions Disp Refills ??? folic acid 1 mg tablet [Pharmacy Med Name: Folic Acid Oral Tablet 1 MG] 270 tablet 3 Sig: Take 3 tablets by mouth daily (every 24 hours). documented in this encounter Plan of Treatment Upcoming Encounters Date Type Department Care Team (Late st Contact Info) Description 05/04/2025 11:45 AM CDT Telemedicine Rheumatology at [place] [address] [address] [facility] [place] [address] Alla Hunt MD [address] [place] [address] documented as of this encounter Visit Diagnoses Not on filedocumented in this encounter Care Teams Revenue Integrity Analyst Relationship Specialty Start Date End Date Darling Wharton MD [address] [place] [address] PCP - General Family Practice 01/01/18 documented as of this encounter
--- NOTE | 2025-01-20 13:36 | CRLHL7_ITS ---
For Patients: As a result of the Cures Act, medical imaging exams and procedure reports are released immediately into your electronic medical record. You may view this report before your referring provider. If you have questions, please contact your health care provider. INDICATION: Fall, left hip and pelvis pain TECHNIQUE: Single view pelvis with AP and frogleg views of the left hip. COMPARISONS: None available. FINDINGS: Femoral heads are well-seated in the acetabula. There is a mildly displaced intertrochanteric fracture. No other displaced injuries are identified. Mild degenerative changes of the bilateral hips. The soft tissues are unremarkable. IMPRESSION: Minimally displaced intertrochanteric fracture of the left hip. Dictated by Zane Nick MD @ 01/20/2025 3:00:34 PM (Electronically Signed)
--- NOTE | 2025-01-20 13:38 | ED_ITS ---
HPI - General Adult General Chief complaint: Hip Injury/Pain Stated complaint: Fall, hip pain Time Seen by Provider: 01/20/25 12:43 History of Present Illness HPI narrative: [age] white female was out going to the mailbox today trying to be careful but slipped and fell on her left hip. She was unable to bear weight. Has pain in her left lateral hip. No anterior left hip pain. She has had hypertension. Osteoporosis and rheumatoid arthritis. She has been on a prednisone burst for a flare in her sciatic symptoms on the left but that was getting better. She does take alendronate Synthroid lisinopril hydrochlorothiazide and methotrexate. She had no chest pain or syncope prior to the fall. The patient simply slipped. She was brought in by her nephew. Related Data Home Medications ?Medication ?Instructions ?Recorded ?Confirmed alendronate 70 mg tablet 70 mg PO QWEEK 11/27/24 01/20/25 folic acid 1 mg tablet 1 mg PO DAILY 11/27/24 01/20/25 levothyroxine 88 mcg tablet 88 mcg PO DAILY 11/27/24 01/20/25 lisinopril 20 1 tab PO DAILY 11/27/24 01/20/25 mg-hydrochlorothiazide 25 mg tablet methotrexate sodium 2.5 mg tablet 15 mg PO QWEEK 11/27/24 01/20/25 acetaminophen 500 mg tablet 500 - 1,000 mg PO Q6H PRN 01/20/25 01/20/25 calcium 500 mg tablet 500 mg PO DAILY 01/20/25 01/20/25 prednisone 20 mg tablet 10 mg PO DAILY 01/20/25 01/20/25 Allergies Allergy/AdvReac Type Severity Reaction Status Date / Time No Known Drug Allergies Allergy Verified 01/20/25 12:52 Review of Systems Status of ROS: Reports: 6 or more systems reviewed and unremarkable except as noted in History and below [facility] Medical History (Updated 01/20/25 @ 18:23 by Viola Magaña MD) Hypothyroidism ?E03.9 - Hypothyroidism, unspecified (ICD-10) Lymphoma ?C85.90 - Non-Hodgkin lymphoma, unspecified, unspecified site (ICD-10) Skin cancer ?C44.90 - Unspecified malignant neoplasm of skin, unspecified (ICD-10) Social History What is your current living situation?: I presently have a place to live Problems where you live: no known problems Problems where you live details: N/A In the past 12 months, utilities in danger of being shut off: no In past 12 months, lack of transportation kept you from medical appts, meetings, work, or getting things needed for daily living: no In the past 12 mos, have been you worried that your food would run out before you had money to buy more?: never true In the past 12 mos, the food you bought just didn't last and you didn't have m oney to buy more?: never true Highest level of school completed/degree received: high school graduate Smoking Status: Never smoker Do you use any of these nicotine containing products: None Second hand tobacco smoke exposure: No How often do you have a drink containing alcohol: never How often do you have six or more drinks on one occasion: Never AUDIT-C Alcohol total score: 0 Non-prescribed substance use: denies use How often does anyone, including family, friends and others, physically hurt you : never How often does anyone, including family, friends and others, insult or talk down to you: never How often does anyone, including family, friends and others, threaten you with harm: never How often does anyone, including family, friends and others, scream or curse at you: never service: No Exam Narrative: Exam Narrative: Objective: In general patient is in mild dissection discomfort vital signs are largely within normal limits. Alert orient x3 HEENT and neck are unremarkable Back chest abdomen unremarkable Pelvis shows some tenderness over the lateral hip over the greater trochanteric area on the left no obvious bruising or open wounds. No buttock tenderness or anterior hip pain on the left She is able to internal external rotate fairly well with her left hip and flex extend but with flexion to past 45 past 90? she has significant pain in her lateral hip. Distal CMS is intact the left lower extremity, the leg is not shortened or rotated. Const: Vital Signs, click to edit/add: Vital Signs - 24 hr 01/20/25 12:53 01/20/25 12:56 01/20/25 12:57 Temperature 97.1 F L Pulse Rate 72 75 Pulse Rate [Pulse Oximeter] 75 Respiratory Rate 18 Blood Pressure 145/79 H Blood Pressure [Le ft Upper Arm] 145/79 H Pulse Oximetry 100 100 100 Oxygen Delivery Me thod Room Air 01/20/25 13:00 01/20/25 13:02 01/20/25 13:04 Temperature Pulse Rate 73 75 72 Pulse Rate [Pulse Oximeter] Respiratory Rate Blood Pressure 129/100 H 121/84 Blood Pressure [Le ft Upper Arm] Pulse Oximetry 100 99 99 Oxygen Delivery Me thod 01/20/25 13:15 01/20/25 13:30 01/20/25 13:33 Temperature Pulse Rate 72 73 70 Pulse Rate [Pulse Oximeter] Respiratory Rate Blood Pressure 142/78 H Blood Pressure [Le ft Upper Arm] Pulse Oximetry 98 98 97 Oxygen Delivery Me thod 01/20/25 13:45 01/20/25 14:00 01/20/25 14:02 Temperature Pulse Rate 74 74 70 Pulse Rate [Pulse Oximeter] Respiratory Rate Blood Pressure 131/80 Blood Pressure [Le ft Upper Arm] Pulse Oximetry 97 98 98 Oxygen Delivery Me thod 01/20/25 14:29 01/20/25 14:30 01/20/25 14:32 Temperature Pulse Rate 78 75 73 Pulse Rate [Pulse Oximeter] Respiratory Rate Blood Pressure 143/68 H Blood Pressure [Le ft Upper Arm] Pulse Oximetry 97 98 97 Oxygen Delivery Me thod 01/20/25 14:45 01/20/25 15:00 01/20/25 15:02 Temperature Pulse Rate 74 78 79 Pulse Rate [Pulse Oximeter] Respiratory Rate Blood Pressure 143/81 H Blood Pressure [Le ft Upper Arm] Pulse Oximetry 97 97 96 Oxygen Delivery Me thod 01/20/25 15:15 01/20/25 15:30 01/20/25 15:33 Temperature Pulse Rate 78 72 76 Pulse Rate [Pulse Oximeter] Respiratory Rate Blood Pressure 123/56 L Blood Pressure [Le ft Upper Arm] Pulse Oximetry 95 95 97 Oxygen Delivery Me thod 01/20/25 15:34 01/20/25 15:45 01/20/25 16:00 Temperature Pulse Rate 76 78 74 Pulse Rate [Pulse Oximeter] Respiratory Rate Blood Pressure Blood Pressure [Le ft Upper Arm] Pulse Oximetry 98 99 97 Oxygen Delivery Me thod 01/20/25 16:02 01/20/25 16:15 Temperature Pulse Rate 75 79 Pulse Rate [Pulse Oximeter] Respiratory Rate Blood Pressure 128/104 H Blood Pressure [Le ft Upper Arm] Pulse Oximetry 97 96 Oxygen Delivery Me thod Course Vital Signs Vital signs: Initial Vital Signs Temperature 97.1 F L 01/20/25 12:53 Temperature Source Temporal Artery Scan 01/20/25 12:53 Pulse Rate 75 01/20/25 12:53 Pulse Rhythm Regular 01/20/25 12:53 Respiratory Rate 18 01/20/25 12:53 Blood Pressure 145/79 H 01/20/25 12:53 Blood Pressure Mean 101 01/20/25 12:53 Blood Pressure Position Supine 01/20/25 12:53 Pulse Oximetry 100 01/20/25 12:53 Oxygen Delivery Method Room Air 01/20/25 12:53 Vital Signs Temperature 97.1 F L 01/20/25 12:53 Pulse Rate 75 01/20/25 12:53 Respiratory Rate 18 01/20/25 12:53 Blood Pressure 145/79 H 01/20/25 12:53 Pulse Oximetry 100 01/20/25 12:53 Oxygen Delivery Method Room Air 01/20/25 12:53 Temperature 98.7 F 01/20/25 17:46 Pulse Rate 78 01/20/25 17:46 Respiratory Rate 20 01/20/25 17:46 Blood Pressure 127/58 L 01/20/25 17:46 Pulse Oximetry 98 01/20/25 17:46 Oxygen Delivery Method Room Air 01/20/25 17:46 Medications Administered Medications: Generic Name Dose Route Start Last Admin Trade Name Freq PRN Reason Stop Dose Admin Acetaminophen 650 mg 01/20/25 16:42 01/20/25 16:53 Acetaminophen 325 Mg Tablet PO 650 mg Q8H CATY Administration Sodium Chloride 1,000 mls @ 75 mls/hr 01/20/25 16:42 01/20/25 16:52 0.9 % Sodium Chloride 1000 Ml IV 01/21/25 06:01 75 mls/hr .[id number] CATY Administration Morphine Sulfate 4 mg 01/20/25 16:42 01/20/25 16:53 Morphine 4 Mg/Ml Inj IVP 4 mg Q4H PRN Administration Pain Discontinued Medications Generic Name Dose Route Start Last Admin Trade Name Freq PRN Reason Stop Dose Admin Sodium Chloride 500 mls @ 500 mls/hr 01/20/25 13:35 01/20/25 14:44 0.9 % Sodium Chloride 500 Ml IV 01/20/25 14:34 Infused .Q1H ONE Infusion Morphine Sulfate 2 mg 01/20/25 13:45 01/20/25 13:44 Morphine 2 Mg/Ml Inj IVP 01/20/25 13:46 2 mg ONCE ONE Administration Morphine Sulfate 2 mg 01/20/25 13:42 01/20/25 14:40 Morphine 2 Mg/Ml Inj IVP 01/20/25 13:43 2 mg ONCE ONE Administration Medical Decision Making MDM Narrative Medical decision making narrative: [age] year white female with osteoporosis rheumatoid arthritis, has a fall on the left hip. Rule out fracture. Patient will get an x-ray of the pelvis and left hip, for completeness will get an EKG and labs. Ortho consult as necessary. Will assess weight-bearing if it looks negative. Addendum 2:48 p.m. patient has an EKG that shows normal sinus rhythm possible bifascicular block. No acute ST T wave changes. EKGs by my read. The patient on x-ray by my read has the intertroch fracture on the left mildly displaced. Pain control, NPO status, orthopedic consultation. Will be admitted to the hospitalist for probable surgery. Lab Data Labs: Lab Results 01/20/25 Range/Units 13:30 WBC 11.43 H (4.50-11.00) K/uL RBC 4.23 (4.00-5.20) m/uL Hgb 13.6 (12.0-16.0) gm/dL Hct 41.1 (33.0-51.0) % MCV 97 (80-100) fL MCH 32 (26-34) pg MCHC 33 (32-36) gm/dL RDW Coeff of Acl 15.6 H (11.5-15.5) % Plt Count 356 (140-440) K/uL Neut % (Auto) 89.5 H (42.0-72.0) % Lymph % (Auto) 6.7 L (20-44) % [place] % (Auto) 2.8 (0.0-11.0) % Eos % (Auto) 0.3 (0.0-7.0) % Baso % (Auto) 0.2 (0.0-3.0) % Neut # (Auto) 10.20 H (1.7-7.0) K/uL Lymph # (Auto) 0.80 L (0.90-2.90) K/uL [place] # (Auto) 0.30 (0.00-0.90) K/UL Eos # (Auto) 0.00 (0.00-0.50) K/uL Baso # (Auto) 0.00 (0.00-0.30) K/uL Abs Immat Gran (auto) 0.10 (0.00-0.30) K/uL Imm/Tot Granulo (auto) 0.5 % Sodium 134 L (135-149) mmol/L Potassium 3.8 (3.6-5.1) mmol/L Chloride 99 (96-114) mmol/L Carbon Dioxide 28 (20-32) mmol/L Anion Gap 7 (7-15) mEq/L BUN 20 (7-30) mg/dL Creatinine 0.6 (0.5-1.5) mg/dL Estimated Creat Clear 37.85 Estimated GFR 93 ml/min Glucose 135 H (60-115) mg/dL Calcium 9.2 (8.4-10.6) mg/dL Discharge Plan Discharge Clinical Impression: Fall, Acute pain of left hip, Closed intertrochanteric fracture Patient Disposition: Admitted As Observation
[2025-01-20] MEDS: 0.9 % SODIUM CHLORIDE 500 ML 500 ML IV (13:43)
[2025-01-20] MEDS: MORPHINE 2 MG/ML inj IVP ×2 (13:44→14:40)
--- OUTSIDE RECORDS SUMMARY | 2025-01-20 13:45 | XMS_ITS | Clinical Summary ---
Author Organization [facility] Address [address] [place] [address] Care Team Providers Care Catering Associate Name Role Phone Darling Wharton MD Primary Care Provider [phone] Source Comments You are receiving this document as you are listed as the primary care provider,follow-up provider, or the patient has been referred to you for consultation.This is in compliance with the Medicare and[facility] EHR Incentive Program,which states Providers who transition their patient to another setting of careor provider of care or refers their patient to another provider of care shouldprovide summary care record for each transition of care or referral. [facility] Allergies Active Allergy Reactions Criticality Noted Date [...] Care Team Description 12/26/2024 Refill Rheumatology at [address] [address] Alla Hunt MD Refill (methotrexate 2.5 MG tablet [Pharmacy Med Name: METHOTREXATE 2.5 MG TABLET]) 11/05/2024 Notes/Orders Rheumatology at [address] [address] Alla Hunt MD 11/03/2024 11:45 AM MANAGER TRUCK Lab Visit [place] [address] [place] [id number] Rheumatoid arthritis involving multiple sites with positive rheumatoid factor (HRC); High risk medication use 11/03/2024 11:25 AM MANAGER TRUCK Ancillary Procedure [place] [address] [place] [address] Alla Hunt MD Rheumatoid arthritis involving multiple sites with positive rheumatoid factor (HRC) 11/03/2024 10:45 AM MANAGER TRUCK Office Visit Rheumatology at [address] [place] [address] Alla Hunt MD Rheumatoid arthritis involving multiple sites with positive rheumatoid factor (HRC) (Primary Dx); High risk medication use; Osteoporosis without pathological fracture (HRC); Lymphoma, unspecified body region, unspecified lymphoma type (HRC) 11/03/2024 Notes/Orders Rheumatology at [address] [address] Alla Hunt MD from Last 3 Months Immunizations Immunization Administration Dates Next Due Flu Vac (3+ yrs) 08/03/2013, 2,08/21/2011,2009,09/10/2007,09/18/2006,09/09/2006,1 11/24/2004 Flu Vac Preserv Free (3+yrs) 08/08/2009 H1n1 Miv Sanofi 3+ Yr (Injected) 11/28/2009 Influenza IIV3 (Trivalent) [facility] 65+ [facility] ([address]) 08/02/2020,09/02/2019,07/23/2018,2016,08/08/2016,08/04/2015,08/03/2014 Influenza IIV4 (Quadrivalent ) Fluad, 65+ [...] Comments Blood Pressure 123/85 11/03/2024 10:26 AM MANAGER TRUCK Pulse 87 11/03/2024 10:26 AM MANAGER TRUCK Temperature 36.4 C (97.6 F) 10/06/2020 10:50 AM MANAGER TRUCK Respiratory Rate 20 01/01/2018 11:13 AM MANAGER TRUCK Oxygen Saturation - - Inhaled Oxygen Concentration - - Weight 49.4 kg (109 lb) 11/03/2024 10:26 AM MANAGER TRUCK Height 157.5 cm (5' 2) 10/23/2022 11:37 AM MANAGER TRUCK pt reported. Body Mass Index 19.94 10/23/2022 11:37 AM MANAGER TRUCK Plan of Treatment Upcoming Encounters Date Type Department Care Team (Late st Contact Info) Description 05/04/2025 11:45 AM CDT Telemedicine Rheumatology at [place] [address] [place] [address]. [place] [address] Alla Hunt MD [address] [place] [address] Health Maintenance Due Date Last Done Comments [...] COMPLETE BLOOD COUNT-W/DIFF Routine 11/03/2024 11:43 AM MANAGER TRUCK Rheumatoid arthritis involving multiple sites with positive rheumatoid factor (HRC) High risk medication use IMMUNOGLOBULINS (G,A,M) Routine 11/03/20 11:43 AM MANAGER TRUCK Rheumatoid arthritis involving multiple sites with positive rheumatoid factor (HRC) High risk medication use C-REACTIVE PROTEIN Routine 11/03/2024 11 :43 AM MANAGER TRUCK Rheumatoid arthritis involving multiple sites with positive rheumatoid factor (HRC) High risk medication use SEDIMENTATION RATE (ESR) Routine 11/03/2024 11:43 AM MANAGER TRUCK Rheumatoid arthritis involving multiple sites with positive rheumatoid factor (HRC) High risk medication use CREATININE / GFR Routine 11/03/2024 11:4 3 AM MANAGER TRUCK Rheumatoid arthritis involving multiple sites with positive rheumatoid factor (HRC) High risk medication use ALT (SGPT) Routine 11/03/2024 11:43 AM MANAGER TRUCK Rheumatoid arthritis involving multiple sites with positive rheumatoid factor (HRC) High risk medication use CBC AND DIFFERENTIAL PANEL Routine 11/03/2024 11:43 AM MANAGER TRUCK Rheumatoid arthritis involving multiple sites with positive rheumatoid factor (HRC) High risk medication use XR HANDS 1 VIEW BILAT ARTHRITIS Routine 11/03/2024 11:26 AM MANAGER TRUCK Rheumatoid arthritis involving multiple sites with positive rheumatoid factor (HRC) HEPATITIS C ANTIBODY, WITH REFLEX Routine 10/23/2022 12:59 PM MANAGER TRUCK Rheumatoid arthritis involving multiple sites with positive rheumatoid factor (HRC) High risk medication use from Last 3 Months or Most Recently Relevant to Health Maintenance Results * Creatinine / GFR (11/03/2024 11:43 AM MANAGER TRUCK) Creatinine 0.65 0.55 - 1.02 mg/dL 11/03/2024 12:56 PM [place] [address] [facility] GFR, Estimated >60 >60 mL/min/1.7 3m2 11/03/2024 12:56 PM MANAGER TRUCK [place] [id number] [facility]ORY Blood Venipuncture / Unknown 11/03/2024 11:43 AM MANAGER TRUCK 11/03/2024 11:43 AM MANAGER TRUCK us Alla Hunt MD LAB_1 Final Resu lt Performing Organization Address City/State/[facility] Co de Phone Number [place] [address] [place] [phone], [facility] * (ABNORMAL) Complete Blood Count-W/Diff (11/03/2024 11:43 AM [facility]) WBC 7.8 3.5 - 10.5 x10(9)/L 11/03/2024 12:03 PM MANAGER TRUCK [facility] 385 LABORATORY RBC 4.69 3.90 - 5.03 x10(12)/L 11/03/2024 12:03 PM [facility] 3850 LABORATORY Hemoglobin 14.9 12.0 - 15.5 g/dL 11/03/2024 12:03 PM [place] [address] LAB[facility] HCT 45.1(H) 34.9 - 44.5 % 11/03/2024 12:03 PM [place] [address] LAB[facility] MCV 96.2 80.0 - 100.0 fL 11/03/2024 12:03 PM [place] [address] [facility] MCH 31.8 27.6 - 33.3 pg 11/03/2024 12:03 PM [place] [address] [facility] MCHC 33.0 31.5 - 35.2 g/dL 11/03/2024 12:03 PM [place] [address] [facility] RDW 15.2 11.9 - 15.5 % 11/03/2024 12:03 PM [place] [address] [facility] Platelets 354 150 - 450 x10(9)/L 11/03/2024 12:03 PM [place] [address] [facility] Automated NRBC 0 <=0 /100 WBC 11/03/2024 12:03 PM [place] [address] [facility] Neutrophil Absolute 5.4 1.7 - 7.0 10(9)/L 11/03/2024 12:03 PM [place] [address] [facility] Lymphocyte Absolute 1.3 1.0 - 4.8 10(9)/L 11/03/2024 12:03 PM [place] [address] [facility] Monocyte Absolute 0.9 0.2 - 0.9 10(9)/L 11/03/2024 12:03 PM [place] [address] [facility] Eosinophil Absolute 0.2 0.0 - 0.5 10(9)/L 11/03/2024 12:03 PM [place] [address] [facility] Basophil Absolute 0.1 0.0 - 0.3 10(9)/L 11/03/2024 12:03 PM [place] [address] [facility] Immature Granulocyte % 0.3 0.0 - 0.5 % 11/03/2024 12:03 PM [place] [address] [facility] Blood Venipuncture / Unknown 11/03/2024 11:43 AM MANAGER TRUCK 11/03/2024 11:43 AM MANAGER TRUCK us Alla Hunt MD LAB_1 Final Resu lt Performing Organization Address [facility] Co de Phone Number [facility] 3850 LABORATORY [address] [place] [address], [facility] * Immunoglobulins (G,A,M) (11/03/2024 11:43 AM MANAGER TRUCK) IgA, Serum 170 69 - 517 mg/dL 11/03/2024 4:54 PM MANAGER TRUCK [facility] IgG, Serum 633 552 - 1,631 mg/dL 11/03/2024 4:54 PM MANAGER TRUCK [facility] IgM, Serum 45 33 - 293 mg/dL 11/03/2024 4:54 PM MANAGER TRUCK [facility] Blood Venipuncture / Unknown 11/03/2024 11:43 AM MANAGER TRUCK 11/03/2024 11:43 AM MANAGER TRUCK Alla Hunt MD LAB_1 Final [facility] Performing Organization Address [facility] de Phone Number [facility] [address] [place], [place] [address] * C-Reactive Protein (11/03/2024 11:43 AM MANAGER TRUCK) Pathologist [facility] C-Reactive Protein <0.5 0.0 - 0.5 mg/dL 11/03/2024 12:56 PM MANAGER TRUCK [place] [address] LAB[facility]ORY Blood Venipuncture / Unknown 11/03/2024 11:43 AM MANAGER TRUCK 11/03/2024 11:43 AM MANAGER TRUCK us Alla Hunt MD LAB_1 Final Resu Performing Organization Address [facility] de Phone Number [facility] [address] LABORATORY [address] [place] [address], [facility] * ALT (SGPT) (11/03/2024 11:43 AM MANAGER TRUCK) ALT (SGPT) 17 <=55 U/L 11/03/2024 12:56 PM MANAGER TRUCK [facility] 385 LABORATORY Blood Venipuncture / Unknown 11/03/2024 11:43 AM MANAGER TRUCK 11/03/2024 11:43 AM MANAGER TRUCK us Alla Hunt MD LAB_1 Final Resu lt Performing Organization Address [facility] Co de Phone Number [place] [address] [facility] [address] [place] [address], [facility] * ESR (11/03/2024 11:43 AM MANAGER TRUCK) [facility] Signature Sedimentation Rate 6 0 - 20 mm/hr 11/03/2024 12:55 PM MANAGER TRUCK [facility] 385 LABORATORY Blood Venipuncture / Unknown 11/03/2024 11:43 AM MANAGER TRUCK 11/03/2024 11:43 AM MANAGER TRUCK us Alla Hunt MD LAB_1 Final Resu lt Performing Organization Address [facility] de Phone Number [place] [address] LABORATORY [address] [place] [address], [facility] * XR Hands 1 View Bilat Arthritis (11/03/2024 11:26 AM MANAGER TRUCK) Anatomical Region Laterality Modality Upper Extremity, Hand Digital Ra diography 11/03/2024 11:2 1 AM MANAGER TRUCK Narrative 11/03/2024 1:47 PM MANAGER TRUCK COMPARISON: 12/06/2010 FINDINGS: Symmetric bilateral carpal collapse/destruction [...] C Antibody, with Reflex (10/23/2022 12:59 PM MANAGER TRUCK) Hepatitis C Antibody Negative (Non Reactive) Negative (Non Reactive) 10/23/2022 10:28 PM MANAGER TRUCK [facility] Comment:Antibodies to HCV no t detected. Does not exclude the possiblity of exposure to HCV. Blood Venipuncture / Unknown 10/23/2022 12:59 PM MANAGER TRUCK 10/23/2022 12:59 PM MANAGER TRUCK Alla Hunt MD LAB_1 Final Resu lt [facility] [address] from Last 3 Months or Most Recently Relevant to Health Maintenance Insurance MEDICARE Care Teams Catering Associate Relationship Specialty Start Date End Date Darling Wharton MD [address] [place] [address] PCP - General Family Practice 01/01/18
--- OUTSIDE RECORDS SUMMARY | 2025-01-20 13:45 | XMS_ITS ---
Author Organization [facility] Address [address] [place] [address] Care Team Providers Care X Ray Nurse Name Role Phone Darling Wharton MD Primary Care Provider [phone] Active Problems Problem Noted Date Diagnosed Date [...]
--- OUTSIDE RECORDS SUMMARY | 2025-01-20 13:45 | XMS_ITS | Encounter Summary ---
Author Organization [employer] Address [address] [place] [address] Care Team Providers Care Sales Manager Prearranged Funerals Name Role Phone Darling Wharton MD Primary Care Provider [phone] Reason for Visit * Reason Comments Refill methotrexate 2.5 MG tablet [Pharmacy Med Name: METHOTREXATE 2.5 MG TABLET] Encounter Details Date Type Department Care Team (Late st Contact Info) Description 12/26/2024 Refill Rheumatology at [address] [place] [address] Catie Hunt MD [address] [place] [id number] Refill (methotrexate 2.5 MG tablet [Pharmacy Med [...] Provider: CATIE HUNT Ordering User: BEATRIZ [employer]SE E OPERATOR * Zacarias Desouza Xrwcomm - 12/26/2024 9:38 [...] on 11/03/2024 eGFR: >60 ml/min on 11/03/2024 [facility] Embedded Refills, Reference: [id number], 12/26/2024 9:38:11 AM Cain VENTURA: RHEUM PN REFILL [[id number]] ([id number]) E OPERATOR documented in this encounter Plan of Treatment Upcoming Encounters Date Type Department Care Team (Late st Contact Info) Description 05/04/2025 11:45 AM CDT Telemedicine Rheumatology at [address] [facility] [place] [address] Catie Hunt MD [address] [place] [address] documented as of this encounter Visit Diagnoses Diagnosis Rheumatoid arthritis involving multiple sites with positive rheumatoid factor (HRC) documented in this encounter Care Teams Sales Manager Prearranged Funerals Relationship Specialty Start Date End Date Darling Whatron MD [address] [facility] [place] [address] PCP - General Family Practice 01/01/18 documented as of this encounter
--- OUTSIDE RECORDS SUMMARY | 2025-01-20 13:46 | XMS_ITS | Clinical Summary ---
Author Organization [facility] Address [address] [place] [id number] Care Team Providers Care [address] Freight Name Role Phone Jung Newman MD, Melissa Jean MD Primary Care Provider [phone] Allergies Active Allergy Reactions Criticality Noted Date [...] Q yearly and usually in November at [facility] and though an Upper Extremity. 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 Gender Identity Not on file Sexual Orientation Not on file Occupation Industry Job Start Date Job End Date Not on file Not on file Not on file Not on file Obstetrics History Last Filed Vital Signs Vital Sign Reading Time Taken Comments Blood Pressure 152/91 01/12/2025 2:21 PM ELECTRIC KNIFE OPERATOR Pulse 85 01/12/2025 2:21 PM ELECTRIC KNIFE OPERATOR Temperature 36.9 C (98.4 F) 02/14/2024 9:58 AM CDT Respiratory Rate 20 03/26/2023 12:56 PM CDT Oxygen Saturation 98% 01/12/2025 2:21 PM ELECTRIC KNIFE OPERATOR Inhaled Oxygen Concentration - - Weight 50.5 kg (111 lb 6.4 oz) 01/12/2025 2:21 P M ELECTRIC KNIFE OPERATOR Height 157.6 cm (5' 2.05) 08/05/2024 8:25 [...] bone density mildly declined. Aurelia Sotelo PA-C [facility] 08/05/2023 Narrative 08/05/2023 8:28 AM CDT For Patients: Results are automatically released to your [facility] account once available, in compliance with federal regulations. This means that you may see your results before your provider has had a chance to review them. Please allow 2-3 business days for your provider to comment on the results. XR DXA Bone Mineral Density (BMD) EXAM LOCATION: [address] [address] PATIENT NAME: Rosie Reynaga DATE OF : [...] two scanners are made by the same medical instrument cable fabricator. PROCEDURE: Dual-energy x-ray absorptiometry performed with routine [...] candy Non-React candy 06/01/2020 6:08 PM CDT [employer] [facility] Comment:Antibodies to HCV no t detected; does not exclude the possibility of exposure to HCV. Blood BLOOD SPECIMEN / Unknown Venipuncture / Unknown 06/01/2020 10:33 AM CDT 06/01/2020 10:33 AM CDT us Darling Wharton MD SEND OUTS Final Resul t [facility] [address] [place] [address], from Last 3 Months or Most Recently Relevant to Health Maintenance Insurance MEDICARE [place] ONLY Advance Directives Documents on File Type Date Recorded Patient Case Picker Expl anation Healthcare Directive 12/04/2023 [address] Fre[employer] Relationship Specialty Start Date End Date Darling Wharton MD [address] [place] [address] PCP - General Family Practice 12/09/17 Jung Newman MD Rheumatology 12/24/13
[2025-01-20 13:52] LABS: Basophils Percent Auto 0.2 % (0.0-3.0); Eosinophils Percent Auto 0.3 % (0.0-7.0); Hematocrit 41.1 % (33.0-51.0); Hemoglobin* 13.6 gm/dL (12.0-16.0); Immature Granulocytes Pct Auto 0.5 %; Lymphocytes Percent Auto 6.7 % (20-44); Mean Corpuscular HGB Conc 33 gm/dL (32-36); Mean Corpuscular Hemoglobin 32 pg (26-34); Mean Corpuscular Volume 97 fL (80-100); Monocytes Percent Auto 2.8 % (0.0-11.0); Neutrophils Percent Auto 89.5 % (42.0-72.0); Platelet Count* 356 K/uL (140-440); RDW Coefficient of Variation % 15.6 % (11.5-15.5); Red Blood Count 4.23 m/uL (4.00-5.20); White Blood Count* 11.43 K/uL (4.50-11.00)
[2025-01-20 13:55] LABS: Chloride* 99 mmol/L (96-114); Potassium* 3.8 mmol/L (3.6-5.1); Sodium* 134 mmol/L (135-149)
[2025-01-20 13:58] LABS: Anion Gap 7 mEq/L (7-15); Blood Urea Nitrogen* 20 mg/dL (7-30); Calcium* 9.2 mg/dL (8.4-10.6); Carbon Dioxide* 28 mmol/L (20-32); Creatinine* 0.6 mg/dL (0.5-1.5); Est. Creatinine Clearance* 37.85; Estimated Glomerular Filt Rate 93 ml/min; Glucose* 135 mg/dL (60-115)
[2025-01-20 14:01] LABS: Slide Review Reflex No
[2025-01-20] MEDS: 0.9 % SODIUM CHLORIDE 1000 ml 1,000 ML 75 ML IV (16:52)
[2025-01-20] MEDS: MORPHINE 4 MG/ML INJ IVP ×2 (16:53→20:47)
[2025-01-20] MEDS: ACETAMINOPHEN 325 MG TABLET 650 MG PO (16:53)
--- NOTE | 2025-01-20 17:24 | P.IMHP_ITS ---
Hospitalist- H&P: HPI History of Present Illness Date Seen: 01/20/25 Chief complaint: Fall, hip pain Narrative: Rosie Reynaga is a 74 year old female with past medical history of rheumatoid arthritis on methotrexate, hypertension, hypothyroidism and osteoporosis who is being admitted for left hip fracture. Pt states that she was out going to the mailbox today and slipped & fell on her left hip. Pt states that she did not faint and was not lightheaded, she was awake all the time and that she did not hit her head. Patient denies shortness of breath, chest pain or lightheadedness. Patient does not have history of cardiac or pulmonary diseases. She is able to walk and exercise without any symptoms. Denied kidney problems. At the ED, patient was hemodynamically stable. Lt hip x-ray showed intertrochanteric fracture, mildly displaced. ED provider contacted orthopedic service and Dr. Rodriguez recommended admission for surgery tomorrow. Review of Systems Status of ROS: Reports: 6 or more systems reviewed and unremarkable except as noted in History and below [facility] Medical History (Updated 01/20/25 @ 18:23 by Viola Magaña MD) Hypothyroidism ?E03.9 - Hypothyroidism, unspecified (ICD-10) Lymphoma ?C85.90 - Non-Hodgkin lymphoma, unspecified, unspecified site (ICD-10) Skin cancer ?C44.90 - Unspecified malignant neoplasm of skin, unspecified (ICD-10) Social History Smoking Status: Never smoker Do you use any of these nicotine containing products: None Second hand tobacco smoke exposure: No How often do you have a drink containing alcohol: never How often do you have six or more drinks on one occasion: Never AUDIT-C Alcohol total score: 0 Non-prescribed substance use: denies use service: No Meds Home Medications and Allergies Home Medications ?Medication ?Instructions ?Recorded ?Confirmed ?Type alendronate 70 mg tablet 70 mg PO QWEEK 11/27/24 01/20/25 History folic acid 1 mg tablet 1 mg PO DAILY 11/27/24 01/20/25 History levothyroxine 88 mcg tablet 88 mcg PO DAILY 11/27/24 01/20/25 History lisinopril 20 1 tab PO DAILY 11/27/24 01/20/25 History mg-hydrochlorothiazide 25 mg tablet methotrexate sodium 2.5 mg tablet 15 mg PO QWEEK 11/27/24 01/20/25 History acetaminophen 500 mg tablet 500 - 1,000 mg PO Q6H PRN 01/20/25 01/20/25 History calcium 500 mg tablet 500 mg PO DAILY 01/20/25 01/20/25 History prednisone 20 mg tablet 10 mg PO DAILY 01/20/25 01/20/25 History Allergies Allergy/AdvReac Type Severity Reaction Status Date / Time No Known Drug Allergies Allergy Verified 01/20/25 12:52 Exam Narrative: Exam Narrative: Physical exam GENERAL: Comfortable, no acute distress. HEAD AND NECK: Atraumatic, normocephalic CARDIOVASCULAR: RRR. Normal S1, S2. No murmurs. RESPIRATORY: Clear to auscultation B/L. Good air entry B/L. No wheezes or rhonchi. MSK: Left lower extremity shortened and externally rotated. NEUROLOGY: Alert, awake, oriented X 3. Normal speech. PSYCH: Normal mood, normal affect. Const: Vital Signs, click to edit/add: Vital Signs - 24 hr 01/20/25 12:53 01/20/25 12:56 01/20/25 12:57 Temperature 97.1 F L Pulse Rate 72 75 Pulse Rate [Pulse Oximeter] 75 Respiratory Rate 18 Blood Pressure 145/79 H Blood Pressure [Le ft Upper Arm] 145/79 H Pulse Oximetry 100 100 [facility] 01/20/25 13:00 01/20/25 13:02 01/20/25 13:04 Temperature Pulse Rate 73 75 72 Pulse Rate [Pulse Oximeter] Respiratory Rate Blood Pressure 129/100 H 121/84 Blood Pressure [Le ft Upper Arm] Pulse Oximetry 100 99 99 Oxygen Delivery Wv thod 01/20/25 13:15 01/20/25 13:30 01/20/25 13:33 Temperature Pulse Rate 72 73 70 Pulse Rate [Pulse Oximeter] Respiratory Rate Blood Pressure 142/78 H Blood Pressure [Le ft Upper Arm] Pulse Oximetry 98 98 97 [facility] 01/[facility]/25 13:45 01/20/25 14:00 01/20/25 14:02 Temperature Pulse Rate 74 74 70 Pulse Rate [Pulse Oximeter] Respiratory Rate Blood Pressure 131/80 Blood Pressure [Le ft Upper Arm] Pulse Oximetry 97 98 98 Oxygen Delivery Me thod 01/20/25 14:29 01/20/25 14:30 01/20/25 14:32 Temperature Pulse Rate 78 75 73 Pulse Rate [Pulse Oximeter] Respiratory Rate Blood Pressure 143/68 H Blood Pressure [Le ft Upper Arm] Pulse Oximetry 97 98 97 Oxygen Delivery Wv thod 01/20/25 14:45 01/20/25 15:00 01/20/25 15:02 Temperature Pulse Rate 74 78 79 Pulse Rate [Pulse Oximeter] Respiratory Rate Blood Pressure 143/81 H Blood Pressure [Le ft Upper Arm] Pulse Oximetry 97 97 96 Oxygen Delivery Wv thod 01/20/25 15:15 01/20/25 15:30 01/20/25 15:33 Temperature Pulse Rate 78 72 76 Pulse Rate [Pulse Oximeter] Respiratory Rate Blood Pressure 123/56 L Blood Pressure [Le ft Upper Arm] Pulse Oximetry 95 95 97 Oxygen Delivery Wv thod 01/20/25 15:34 01/20/25 15:45 01/20/25 16:00 Temperature Pulse Rate 76 78 74 Pulse Rate [Pulse Oximeter] Respiratory Rate Blood Pressure Blood Pressure [Le ft Upper Arm] Pulse Oximetry 98 99 97 Oxygen Delivery Wv thod 01/20/25 16:02 01/20/25 16:15 Temperature Pulse Rate 75 79 Pulse Rate [Pulse Oximeter] Respiratory Rate Blood Pressure 128/104 H Blood Pressure [Le ft Upper Arm] Pulse Oximetry 97 96 Oxygen Delivery Me od Hospitalist - H&P: Result Labs Labs: Short CBC 01/20/25 Range/Units 13:30 WBC 11.43 H (4.50-11.00) K/uL Hgb 13.6 (12.0-16.0) gm/dL Hct 41.1 (33.0-51.0) % Plt Count 356 (140-440) K/uL BMP 01/20/25 13:30 Sodium 134 L Potassium 3.8 Chloride 99 Carbon Dioxide 28 BUN 20 Creatinine 0.6 Glucose 135 H Calcium 9.2 ECG Attestation: I personally reviewed and interpreted this ECG as follows: ECG interpretation date: 01/20/25 Interpretation: Normal sinus rhythm. Left axis deviation. Right bundle branch block noted. QTc 492 Imaging Chest x-ray: Attestation: I have reviewed the pertinent imaging results. Radiologist's impression: Technique: AP view of the chest. Comparison: None. Findings: Low lung volumes. Normal cardiomediastinal silhouette. No focal consolidation, pleural effusions, or visualized pneumothorax. Impression: No acute cardiopulmonary disease. Dictated by Candelario Gallardo MD @ 01/20/2025 3:50:42 PM Left hip x-ray: Attestation: I have reviewed the pertinent imaging results. Radiologist's impression: TECHNIQUE: Single view pelvis with AP and frogleg views of the left hip. COMPARISONS: None available. FINDINGS: Femoral heads are well-seated in the acetabula. There is a mildly displaced intertrochanteric fracture. No other displaced injuries are identified. Mild degenerative changes of the bilateral hips. The soft tissues are unremarkable. IMPRESSION: Minimally displaced intertrochanteric fracture of the left hip. Dictated by Zane Nick MD @ 01/20/2025 3:00:34 PM Assessment and Plan Assessment and plan (1) Closed intertrochanteric fracture: Problem comment: X ray , Lt hip: There is a mildly displaced intertrochanteric fracture. No other displaced injuries are identified. NPO after midnight for surgery tomorrow Status: Acute (2) Pre-op evaluation: Problem comment: -patient is able to exercise without shortness of breath or chest discomfort, no baseline symptoms. -EKG is sinus rhythm with right bundle branch block, no previous EKG to compare. No ischemic changes. -chest x-ray unremarkable. -will hold her lisinopril-hydrochlorothiazide tablet tomorrow morning -patient optimized for surgery. Status: Acute (3) Fall: Problem comment: Slipped, no syncope Status: Acute (4) Osteoporosis: Problem comment: On alendronate Status: Acute (5) Rheumatoid arthritis: Problem comment: On methotrexate, last does was on Saturday Status: Acute (6) Sciatica: Problem comment: Her doctor prescribed a short course of prednisone 10 mg qd for a week Patient took her prednisone does this morning, she mentioned that she finishes the course in 2 days Patient denies frequent use of steroids for treatment of any of her medical problems. Resume prednisone tomorrow morning. Status: Acute (7) Hypertension: Problem comment: Hold lisinopril-hydrochlorothiazide before surgery Status: Acute (8) Hypothyroidism: Problem comment: On levothyroxine Status: Acute Total Time Spent Total Time Spent: Time spent: Today I spent 75 minutes seeing the patient, discussing the patient with ER staff, reviewing Expanse and EPIC notes/diagnostics, discussing the care plan with our care time that includes social work, PT/OT, pharmacy, RT, long term and documenting my impressions and plan in the medical record.
[2025-01-20] MEDS: HEPARIN 5,000 UNIT/0.5 ML INJ 5000 UNIT SUBCUT (23:03)
[2025-01-21] VITALS (23 sets, daily range): BP systolic 89–137; BP diastolic 48–88; PULSE 61–84; RESP 12–20; TEMP 36.1–36.9; O2SAT 86–99
[2025-01-21] MEDS: ACETAMINOPHEN 325 MG TABLET 650 MG PO ×2 (00:43→08:54)
[2025-01-21] MEDS: LEVOTHYROXINE 88 MCG TABLET PO (06:05)
[2025-01-21 06:44] LABS: Hematocrit 35.6 % (33.0-51.0); Hemoglobin* 11.7 gm/dL (12.0-16.0); Mean Corpuscular HGB Conc 33 gm/dL (32-36); Mean Corpuscular Hemoglobin 32 pg (26-34); Mean Corpuscular Volume 99 fL (80-100); Platelet Count* 293 K/uL (140-440); Red Blood Count 3.61 m/uL (4.00-5.20); White Blood Count* 11.52 K/uL (4.50-11.00)
[2025-01-21 06:49] LABS: Slide Review Reflex No
[2025-01-21 06:56] LABS: Chloride* 103 mmol/L (96-114); Sodium* 135 mmol/L (135-149)
[2025-01-21 06:57] LABS: Potassium* 3.8 mmol/L (3.6-5.1)
[2025-01-21 06:59] LABS: Anion Gap 5 mEq/L (7-15); Blood Urea Nitrogen* 17 mg/dL (7-30); Carbon Dioxide* 27 mmol/L (20-32); Creatinine* 0.5 mg/dL (0.5-1.5); Est. Creatinine Clearance* 37.85; Estimated Glomerular Filt Rate 97 ml/min; Glucose* 92 mg/dL (60-115)
[2025-01-21 07:00] LABS: Calcium* 8.4 mg/dL (8.4-10.6); Magnesium* 1.9 mg/dL (1.5-2.6)
--- NOTE | 2025-01-21 07:01 | PC.NURSE ---
Pt is alert and oriented x3. Afebrile. Pt reports 8/10 pain in left hip, managed with cold pack, scheduled and PRN medication. Pt?s external catheter is patent and draining. Pt has tolerated NPO diet since 0000. ?
[2025-01-21] MEDS: predniSONE 20 MG TABLET 10 MG PO (08:54)
--- NOTE | 2025-01-21 11:23 | PC.SOCIAL ---
Addendum entered by JANICE Sylvester 01/21/25 16:55: Discharge planning: Pt is interested in [facility] for short-term rehab. Social work to follow-up as needed. Original Note: Discharge planning: utility worker production met with pt and her son, Linus, this morning to discuss early discharge planning. Pt has surgery this afternoon for her left hip fracture. Pt would like to go to short-term rehab after her hospital stay, as she currently lives alone. Pt was admitted as inpatient on 01/20/25. Pt has Medicare for her primary insurance which will require a three night inpatient hospital stay in order to have Medicare coverage for short-term rehab. utility worker production explained this to the pt. Social work to follow-up as needed.
--- NOTE | 2025-01-21 13:16 | NUTR.NU ---
Nutrition screen initiated r/t skin risk. Patient admitted with fall and hip fracture. Height 62, weight 119.8 lbs, BMI 21.8. No weight loss noted in weight history. Patient is NPO for surgery today. Monitor diet advancement, tolerance and intake and follow up as needed.
[2025-01-21] MEDS: CEFAZOLIN 1 GM inj IVP (14:17)
[2025-01-21] MEDS: LACTATED RINGERS 1000 ML 1,000 ML 75 ML IV ×2 (14:18→14:56)
--- NOTE | 2025-01-21 14:19 | W.ANESCHARGE ---
Anesthesia Charges Start Date/Time Anesthesia Start Date: 01/21/25 Anesthesia Start Time: 13:46 Stop Date/Time Anesthesia Stop Date: 01/21/25 Anesthesia Stop Time: 15:51 Summary Emergency: MDA Extremes of Age - Over 70 or under 1: MDA Coding CPT Codes CPT Codes: ANESTH SURGERY OF FEMUR - 58988 ([id number]) P2 - PATIENT W/MILD SYST DISEASE, QK - HAND HIDE STRETCHER 2-4 CNCRNT ANES PROC, QX - APPOINTMENT COORDINATOR SVC W/ MD MED DIRECTION Additional Codes: Summary - Emergency: MDA ([id number]) Summary - Extremes of Age - Over 70 or under 1: MDA ([id number])
--- NOTE | 2025-01-21 14:19 | W.PM.NB ---
Nerve Block Nerve Block Time Seen by Provider: 14:03 Date Seen: 01/21/25 Type of block requested by surgeon for post-operative analgesia: WILLIAM/LFCN Side: left Time out performed: Yes Verification of patient name: Yes Verification of date of : Yes Site marking: site marked Name of person performing procedure: Naren Continuous monitoring Was continuous monitoring of O2 sat, B/P, boot and saddle repair person, recorded every 15 minutes?: Yes Procedure Checklist: sterile prep, needles and gloves Ultrasound guided. Images saved: Yes Medications given in 5ml increments after negative aspiration: Ropivicaine %: 0.5 mL: 30 Needle gauge: 20 Precedex (mcg): 25 Patient tolerated procedure well: Yes Additional comments: Needle noted below psoas tendon needle noted adjacent to LFCN Block Charges Block Charge (with Pro Fee): Other Periph Nerve Block Use of Ultrasound Machine for Block: Yes- US Guidance/pain block
--- NOTE | 2025-01-21 15:06 | PM.IMPN1 ---
Progress Note: A&P Assessment and plan (1) Closed intertrochanteric fracture: Problem details: X ray , Lt hip: There is a mildly displaced intertrochanteric fracture. No other displaced injuries are identified. NPO, to OR today, 3/6 PT/OT postoperatively assessment services manager to assist with SNF placement Status: Acute (2) Pre-op evaluation: Problem details: -patient is able to exercise without shortness of breath or chest discomfort, no baseline symptoms. -EKG is sinus rhythm with right bundle branch block, no previous EKG to compare. No ischemic changes. -chest x-ray unremarkable. -will hold her lisinopril-hydrochlorothiazide tablet tomorrow morning -patient optimized for surgery. Status: Acute (3) Fall: Problem details: Slipped on ice, no syncope Status: Acute (4) Osteoporosis: Problem details: On alendronate Status: Acute (5) Rheumatoid arthritis: Problem details: On methotrexate, last dose was on Saturday Status: Acute (6) Sciatica: Problem details: Her doctor prescribed a short course of prednisone 10 mg qd for a week Patient took her prednisone does this morning, she mentioned that she finishes the course in 2 days Patient denies frequent use of steroids for treatment of any of her medical problems. Resume prednisone tomorrow morning. Status: Acute (7) Hypertension: Problem details: Hold lisinopril-hydrochlorothiazide before surgery, resume POD#1 Status: Acute (8) Hypothyroidism: Problem details: On levothyroxine Status: Acute Time Spent With Patient Total time spent: Today I spent 45 minutes seeing the patient, discussing the patient with ER staff, reviewing Expanse and Epic notes/diagnostics, discussing the care plan with our team that includes social work, PT/OT, pharmacy, RT, nursing home and documenting my impressions and plan in the medical record. Subjective Date Seen: 01/21/25 Interval history: Patient is seen with son at bedside. Reports pain is currently appropriately managed. Denies headache or dizziness. Denies chest pain or shortness of breath. Has been NPO. No nausea. Remains afebrile. Awaiting surgery this afternoon. Exam Narrative: Exam Narrative: PHYSICAL EXAM General: Pleasant, conversant, NAD HEENT: Normocephalic, atraumatic, sclera white, EOMI, oral mucosa moist Cardiovascular: RRR, S1S2. No pitting edema Pulmonary: CTA bilaterally without rhonchi, rales, expiratory wheezes. No dyspnea on room air Abdominal: Soft, nondistended, NTTP Neurological: Alert, answering questions appropriately, cranial nerves intact, no focal findings Extremities: LLE shortened externally rotated. Neurovascularly intact Skin: Warm, dry. Const: Vital Signs, click to edit/add: Vital Signs - 24 hr 01/20/25 15:15 01/20/25 15:30 01/20/25 15:33 Temperature Pulse Rate 78 72 76 Pulse Rate [Left P ulse Oximeter] Respiratory Rate Blood Pressure 123/56 L Blood Pressure [Le ft Arm] Pulse Oximetry 95 95 97 Oxygen Delivery Me thod 01/20/25 15:34 01/20/25 15:45 01/20/25 16:00 Temperature Pulse Rate 76 78 74 Pulse Rate [Left P ulse Oximeter] Respiratory Rate Blood Pressure Blood Pressure [Le ft Arm] Pulse Oximetry 98 99 97 Oxygen Delivery Me thod 01/20/25 16:02 01/20/25 16:15 01/20/25 17:46 Temperature 98.7 F Pulse Rate 75 79 Pulse Rate [Left P ulse Oximeter] 78 Respiratory Rate 20 Blood Pressure 128/104 H Blood Pressure [Le ft Arm] 127/58 L Pulse Oximetry 97 96 98 Oxygen Delivery Mo thod Room Air 01/20/25 19:00 01/20/25 22:06 01/21/25 04:00 Temperature 97.8 F 96.9 F L 97.6 F Pulse Rate Pulse Rate [Left P ulse Oximeter] 68 69 71 Respiratory Rate 18 19 20 Blood Pressure Blood Pressure [Le ft Arm] 104/69 118/62 108/71 Pulse Oximetry 95 96 96 Oxygen Delivery Mo thod Room Air Room Air Room Air 01/21/25 07:00 01/21/25 12:00 Temperature 98.0 F 98.0 F Pulse Rate Pulse Rate [Left P ulse Oximeter] 72 78 Respiratory Rate 16 18 Blood Pressure Blood Pressure [Le ft Arm] 126/63 137/77 Pulse Oximetry 96 96 Oxygen Delivery Mo thod Room Air Labs Labs: Laboratory Results - last 24 hr 01/21/25 06:11 WBC 11.52 H RBC 3.61 L Hgb 11.7 L Hct 35.6 MCV 99 MCH 32 MCHC 33 Plt Count 293 Sodium 135 Potassium 3.8 Chloride 103 Carbon Dioxide 27 Anion Gap 5 L BUN 17 Creatinine 0.5 Estimated Creat Clear 37.85 Estimated GFR 97 Glucose 92 Calcium 8.4 Magnesium 1.9
--- NOTE | 2025-01-21 15:29 | PM.ORPRC ---
Procedure Note Date of procedure: 01/21/25 Procedure: PREOPERATIVE DIAGNOSIS: Left hip 3 part intertrochanteric fracture POSTOPERATIVE DIAGNOSIS: Left hip 3 part intertrochanteric fracture NAME OF OPERATION: Left hip fracture ORIF SURGEON: Harsh Loco MD WING COVERER: Stephanie Hill PA-C IMPLANTS: Synthes intramedullary hip screw 11 mm x 380 mm with a 95 mm lag screw ANESTHESIA: Spinal ESTIMATED BLOOD LOSS: 100 mL COMPLICATIONS: None SPECIMENS: None DRAINS: None PREOPERATIVE ANTIBIOTICS: Ancef 1 gram INDICATIONS: The patient is a wrist 74-year-old who fell yesterday sustaining a 3 part intertrochanteric fracture of the left hip. They were admitted for workup and care. They have been medically cleared for surgery. The risks, benefits and expected outcomes were discussed in detail. These included but were not limited to: Infection, bleeding, injury to blood vessel or nerve, venous thromboembolism. All questions were answered to their satisfaction. Use of an assistant press operator offset was necessary for patient positioning and safety, soft tissue retraction and closure, dressing application, and transfer of the patient to and from the hospital bed to the fracture table. PROCEDURE: Spinal anesthesia was administered. The patient was placed supine on the fracture table. The left lower extremity was prepped and draped in the usual sterile fashion. The limb was placed in longitudinal traction. Our provisional reduction was confirmed with the C-arm. The guide pin was placed percutaneously to the tip of the greater trochanter. It was advanced into the canal. The greater trochanter fragment was held reduced with a mallet placed over the flare of the greater trochanter. The guide pin placement was confirmed with the image intensifier in both AP and lateral views. We then made a stab incision around the guide pin. The soft tissue sleeve was advanced to the tip of the trochanter. The opening reamer was used. Given the amount of comminution, a long nail was used. Therefore, we placed the ball-tipped guide liu. This was taken to the distal femoral physeal scar and confirmed on both AP and lateral views. Length was measured. We reamed to 12.5 mm with good cortical chatter. The intramedullary nail was placed. We held the greater trochanter fracture fragment reduced with the mallet. We made an incision over the flare of the greater trochanter. The triple drill sleeve was placed and reduced to the lateral cortex, at the greater trochanter fracture. This held it nicely reduced. The guide pin was taken to the subchondral bone of the femoral head on both the AP and lateral views. It was placed in the center, inferior aspect of the head. The drill was used. We placed the 95 mm lag screw. Our reduction remains anatomic. Traction was released. A minimal amount of compression was placed through the fracture. The lag screw was set to static mode. This construct was imaged in the AP and lateral views and was felt to be well placed with an anatomic reduction. The wounds were irrigated with normal saline. They were closed with Vicryl deep and Monocryl in the skin. A dry dressing was applied. Sponge and needle counts were correct x2. The patient tolerated the procedure well. There were no apparent complications. They were carefully transferred to the hospital bed and taken to the postanesthesia care unit in satisfactory condition. PLAN: The patient will be mobilized with physical therapy. They may weightbear as tolerates on the left lower extremity. Xarelto will be used for DVT prophylaxis. They will be discharged to a long term once medically appropriate.
--- NOTE | 2025-01-21 15:36 | PM.ORCN ---
History of Present Illness HPI Date Seen: 01/21/25 Chief complaint: Fall, hip pain Narrative: The patient is a community ambulator, without assist. She fell yesterday, sustaining a left hip intertrochanteric fracture. She has never injured this hip or had surgery on it previously. She lives independently, in her own home. Review of Systems Narrative: The patient denies: Fever, night sweats, shaking chills, nausea, vomiting, diarrhea, chest pain, chest pressure, shortness of breath, no rash, no change in hearing or vision, no issues with bleeding or clotting [facility] Medical History Hypothyroidism ?E03.9 - Hypothyroidism, unspecified (ICD-10) Lymphoma ?C85.90 - Non-Hodgkin lymphoma, unspecified, unspecified site (ICD-10) Skin cancer ?C44.90 - Unspecified malignant neoplasm of skin, unspecified (ICD-10) Social History What is your current living situation?: I presently have a place to live Problems where you live: no known problems Problems where you live details: N/A In the past 12 months, utilities in danger of being shut off: no In past 12 months, lack of transportation kept you from medical appts, meetings, work, or getting things needed for daily living: no In the past 12 mos, have been you worried that your food would run out before you had money to buy more?: never true In the past 12 mos, the food you bought just didn't last and you didn't have money to buy more?: never true Highest level of school completed/degree received: high school graduate Smoking Status: Never smoker Do you use any of these nicotine containing products: None Second hand tobacco smoke exposure: No How often do you have a drink containing alcohol: never How often do you have six or more drinks on one occasion: Never AUDIT-C Alcohol total score: 0 Non-prescribed substance use: denies use How often does anyone, including family, friends and others, physically hurt you: never How often does anyone, including family, friends and others, insult or talk down to you: never How often does anyone, including family, friends and others, threaten you with harm: never How often does anyone, including family, friends and others, scream or curse at you: never service: No Meds Home Medications and Allergies Home Medications ?Medication ?Instructions ?Recorded ?Confirmed ?Type alendronate 70 mg tablet 70 mg PO QWEEK 11/27/24 01/20/25 History folic acid 1 mg tablet 1 mg PO DAILY 11/27/24 01/20/25 History levothyroxine 88 mcg tablet 88 mcg PO DAILY 11/27/24 01/20/25 History lisinopril 20 1 tab PO DAILY 11/27/24 01/20/25 History mg-hydrochlorothiazide 25 mg tablet methotrexate sodium 2.5 mg tablet 15 mg PO QWEEK 11/27/24 01/20/25 History acetaminophen 500 mg tablet 500 - 1,000 mg PO Q6H PRN 01/20/25 01/20/25 History calcium 500 mg tablet 500 mg PO DAILY 01/20/25 01/20/25 History prednisone 20 mg tablet 10 mg PO DAILY 01/20/25 01/20/25 History Allergies Allergy/AdvReac Type Severity Reaction Status Date / Time No Known Drug Allergies Allergy Verified 01/20/25 12:52 Ortho Exam Narrative Exam Narrative: The patient is alert and oriented x3, in no acute distress, they are able to converse in a normal speaking voice without obvious hearing loss and with nonlabored breathing. The patient is examined supine in the hospital bed. The skin about the left hip is intact. There is no swelling, no ecchymosis, no surgical scars. CMS to the left foot is normal. Const Vital Signs, click to edit/add: Vital Signs - 24 hr 01/20/25 15:45 01/20/25 16:00 01/20/25 16:02 Temperature Pulse Rate 78 74 75 Pulse Rate [Left Pulse Oximeter] Respiratory Rate Blood Pressure 128/104 H Blood Pressure [Left Arm] Pulse Oximetry 99 97 97 Oxygen Delivery Method 01/20/25 16:15 01/20/25 17:46 01/20/25 19:00 Temperature 98.7 F 97.8 F Pulse Rate 79 Pulse Rate [Left Pulse Oximeter] 78 68 Respiratory Rate 20 18 Blood Pressure Blood Pressure [Left Arm] 127/58 L 104/69 Pulse Oximetry 96 98 95 Oxygen Delivery Method Room Air Room Air 01/20/25 22:06 01/21/25 04:00 01/21/25 07:00 Temperature 96.9 F L 97.6 F 98.0 F Pulse Rate Pulse Rate [Left Pulse Oximeter] 69 71 72 Respiratory Rate 19 20 16 Blood Pressure Blood Pressure [Left Arm] 118/62 108/71 126/63 Pulse Oximetry 96 96 96 Oxygen Delivery Method Room Air Room Air 01/21/25 12:00 Temperature 98.0 F Pulse Rate Pulse Rate [Left Pulse Oximeter] 78 Respiratory Rate 18 Blood Pressure Blood Pressure [Left Arm] 137/77 Pulse Oximetry 96 Oxygen Delivery Method Room Air Results Labs Labs: Laboratory Results - last 48 hr 01/20/25 01/21/25 13:30 06:11 WBC 11.43 H 11.52 H RBC 4.23 3.61 L Hgb 13.6 11.7 L Hct 41.1 35.6 MCV 97 99 MCH 32 32 MCHC 33 33 RDW Coeff of Cal 15.6 H Plt Count 356 293 Neut % (Auto) 89.5 H Lymph % (Auto) 6.7 L Mcintosh % (Auto) 2.8 Eos % (Auto) 0.3 Baso % (Auto) 0.2 Neut # (Auto) 10.20 H Lymph # (Auto) 0.80 L Mcintosh # (Auto) 0.30 Eos # (Auto) 0.00 Baso # (Auto) 0.00 Abs Immat Gran (auto) 0.10 Imm/Tot Granulo (auto) 0.5 Sodium 134 L 135 Potassium 3.8 3.8 Chloride 99 103 Carbon Dioxide 28 27 Anion Gap 7 5 L BUN 20 17 Creatinine 0.6 0.5 Estimated Creat Clear 37.85 37.85 Estimated GFR 93 97 Glucose 135 H 92 Calcium 9.2 8.4 Magnesium 1.9 Diagnostic results Additional Comments: An AP pelvis, AP and cross-table lateral view of the left hip are reviewed. These show a three-part intertrochanteric fracture. There is a head and neck fragment, greater trochanter fragment and the shaft. The lesser trochanter is on the shaft fragment. There was no pre-existing hip joint arthritis, no obvious pathologic lesion. Assessment and Plan Assessment and plan (1) Closed intertrochanteric fracture: Problem comment: X ray , Lt hip: There is a mildly displaced intertrochanteric fracture. No other displaced injuries are identified. NPO, to OR today, 3/6 PT/OT postoperatively nutrition services aide to assist with SNF placement Status: Acute Total time spent: Total time spent is greater than 50% in coordination of care (as documented) at patient's floor/unit and/or counseling patient: (2) Pre-op evaluation: Problem comment: -patient is able to exercise without shortness of breath or chest discomfort, no baseline symptoms. -EKG is sinus rhythm with right bundle branch block, no previous EKG to compare. No ischemic changes. -chest x-ray unremarkable. -will hold her lisinopril-hydrochlorothiazide tablet tomorrow morning -patient optimized for surgery. Status: Acute Total time spent: Total time spent is greater than 50% in coordination of care (as documented) at patient's floor/unit and/or counseling patient: (3) Fall: Problem comment: Slipped on ice, no syncope Status: Acute Total time spent: Total time spent is greater than 50% in coordination of care (as documented) at patient's floor/unit and/or counseling patient: (4) Osteoporosis: Problem comment: On alendronate Status: Acute Total time spent: Total time spent is greater than 50% in coordination of care (as documented) at patient's floor/unit and/or counseling patient: (5) Rheumatoid arthritis: Problem comment: On methotrexate, last dose was on Saturday Status: Acute Total time spent: Total time spent is greater than 50% in coordination of care (as documented) at patient's floor/unit and/or counseling patient: (6) Sciatica: Problem comment: Her doctor prescribed a short course of prednisone 10 mg qd for a week Patient took her prednisone does this morning, she mentioned that she finishes the course in 2 days Patient denies frequent use of steroids for treatment of any of her medical problems. Resume prednisone tomorrow morning. Status: Acute Total time spent: Total time spent is greater than 50% in coordination of care (as documented) at patient's floor/unit and/or counseling patient: (7) Hypertension: Problem comment: Hold lisinopril-hydrochlorothiazide before surgery, resume POD#1 Status: Acute Total time spent: Total time spent is greater than 50% in coordination of care (as documented) at patient's floor/unit and/or counseling patient: (8) Hypothyroidism: Problem comment: On levothyroxine Status: Acute Total time spent: Total time spent is greater than 50% in coordination of care (as documented) at patient's floor/unit and/or counseling patient: Plan Assessment: Three-part left lower extremity intertrochanteric fracture Plan: The patient has been medically cleared for surgery. Therefore, we will plan to take her to the operating room today for ORIF of her hip fracture.
--- NOTE | 2025-01-21 15:54 | W.ANESCHARGE ---
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
--- NOTE | 2025-01-21 16:07 | SUR.PHASEI ---
Patient arrived to PACU stated no discomfort or nausea. Oxygen saturation dropped some after sleeping in PACU. Oxygen mask applied for approximately 10-15 minutes until more awake and taking ice chips.
--- NOTE | 2025-01-21 16:18 | SUR.PHASEI ---
Patient meets discharge criteria from PACU
--- NOTE | 2025-01-21 19:34 | PC.NURSE ---
Recovering from L hip repair well, VSS on RA, the patient reports minimal pain @ 2/10.... no medications were given. No n/v, tolerating fluids although poor intake so LR remains @75 hr. Call light within reach, 3 Mepilex to hip CDI, ice pack to hip as well the patient states that this helps with her pain as well. Evelyn VILLAGRAN BSN
[2025-01-21] MEDS: OXYCODONE 5 MG TABLET PO (19:38)
[2025-01-21] MEDS: CEFAZOLIN 1 GM in 0.9 % SODIUM CHLORIDE Mini-bag 100 ML IVPB (20:06)
[2025-01-21] MEDS: SENNOSIDES 1 TAB TABLET 2 TAB PO (20:07)
[2025-01-22] VITALS (7 sets, daily range): BP systolic 113–120; BP diastolic 60–71; PULSE 77–89; RESP 16–18; TEMP 36.2–36.7; O2SAT 92–97
[2025-01-22] MEDS: CEFAZOLIN 1 GM in 0.9 % SODIUM CHLORIDE Mini-bag 100 ML IVPB (04:39)
[2025-01-22] MEDS: OXYCODONE 5 MG TABLET PO ×5 (05:03→23:52)
[2025-01-22] MEDS: ACETAMINOPHEN 325 MG TABLET 650 MG PO ×4 (05:03→23:52)
--- NOTE | 2025-01-22 06:31 | PC.NURSE ---
Pt doing well after hip surgery yesterday. Up to BSC a couple of time. the 3 dressings to left hip are CDI. VSS. oxycodone and tylenol are working to control her pain. CMS is intact.
[2025-01-22 06:48] LABS: Hematocrit 30.2 % (33.0-51.0); Hemoglobin* 10.2 gm/dL (12.0-16.0); Mean Corpuscular HGB Conc 34 gm/dL (32-36); Mean Corpuscular Hemoglobin 33 pg (26-34); Mean Corpuscular Volume 97 fL (80-100); Platelet Count* 269 K/uL (140-440); White Blood Count* 17.33 K/uL (4.50-11.00)
[2025-01-22 07:07] LABS: Chloride* 102 mmol/L (96-114); Sodium* 133 mmol/L (135-149)
[2025-01-22 07:08] LABS: Potassium* 3.9 mmol/L (3.6-5.1)
[2025-01-22 07:10] LABS: Anion Gap 5 mEq/L (7-15); Blood Urea Nitrogen* 13 mg/dL (7-30); Carbon Dioxide* 26 mmol/L (20-32); Creatinine* 0.5 mg/dL (0.5-1.5); Est. Creatinine Clearance* 36.12; Estimated Glomerular Filt Rate 97 ml/min; Slide Review Reflex No
[2025-01-22 07:11] LABS: Glucose* 118 mg/dL (60-115)
[2025-01-22] MEDS: SENNOSIDES 1 TAB TABLET 2 TAB PO ×2 (08:09→21:06)
[2025-01-22] MEDS: RIVAROXABAN 10 MG TABLET PO (08:09)
--- NOTE | 2025-01-22 08:21 | PM.ORPN ---
Subjective Subjective Time Seen by Provider: 07:40 Date Seen: 01/22/25 Principal diagnosis: Post left hip rodding Interval history: Cliff is comfortable in her bed this morning. She has been up to the bedside commode. Plan for discharge is to a intermediate facility. She is hopeful that [facility] will take her. Ortho Exam Narrative Exam Narrative: Alert and oriented x3. Patient is in no acute distress. Converses without labored breathing. Hearing is grossly intact. Examination of the left lower extremity shows the dressings are intact. Mild soft tissue edema. CMS intact left lower extremity. Calves are soft and nontender. She has good quad strength as tested in the supine position. Const Vital Signs, click to edit/add: Vital Signs - 24 hr 01/21/25 12:00 01/21/25 15:47 01/21/25 15:50 Temperature 98.0 F 98.5 F Pulse Rate 65 69 Pulse Rate [Left Pulse Oximeter] 78 Respiratory Rate 18 12 16 Blood Pressure 94/56 L 97/52 L Blood Pressure [Left Arm] 137/77 Pulse Oximetry 96 97 86 L Oxygen Delivery Method Room Air Room Air Aerosol Mask Oxygen Flow Rate 6 01/21/25 15:55 01/21/25 16:00 01/21/25 16:05 Temperature Pulse Rate 71 61 79 Pulse Rate [Left Pulse Oximeter] Respiratory Rate 16 16 19 Blood Pressure 89/49 L 93/48 L 104/63 Blood Pressure [Left Arm] Pulse Oximetry 98 99 98 Oxygen Delivery Method Aerosol Mask Room Air Oxygen Flow Rate 6 0 01/21/25 16:10 01/21/25 16:15 01/21/25 16:30 Temperature 98.2 F 97.0 F L Pulse Rate 70 75 68 Pulse Rate [Left Pulse Oximeter] Respiratory Rate 16 14 14 Blood Pressure 93/55 L 91/53 L 93/48 L Blood Pressure [Left Arm] Pulse Oximetry 95 98 97 Oxygen Delivery Method Room Air Room Air Room Air Oxygen Flow Rate 0 0 01/21/25 16:45 01/21/25 17:00 01/21/25 17:15 Temperature 97.0 F L 97.0 F L 97.2 F L Pulse Rate 83 70 70 Pulse Rate [Left Pulse Oximeter] Respiratory Rate 14 14 14 Blood Pressure 100/60 112/60 111/62 Blood Pressure [Left Arm] Pulse Oximetry 95 95 97 Oxygen Delivery Method Oxygen Flow Rate 03/06/25 17:30 01/21/25 18:00 01/21/25 18:30 Temperature 97.5 F L 97.5 F L 97.8 F Pulse Rate 65 77 82 Pulse Rate [Left Pulse Oximeter] Respiratory Rate 16 14 16 Blood Pressure 110/68 108/88 110/70 Blood Pressure [Left Arm] Pulse Oximetry 95 96 95 Oxygen Delivery Method Room Air Oxygen Flow Rate 01/21/25 19:33 01/21/25 19:59 01/21/25 20:35 Temperature 97.2 F L 97.2 F L 97.2 F L Pulse Rate 81 84 Pulse Rate [Left Pulse Oximeter] 78 Respiratory Rate 14 14 16 Blood Pressure 100/71 123/64 Blood Pressure [Left Arm] 100/71 Pulse Oximetry 93 93 94 Oxygen Delivery Method Room Air Room Air Room Air Oxygen Flow Rate 0 0 0 01/21/25 21:31 01/21/25 22:32 01/21/25 22:35 Temperature 97.5 F L 97.5 F L 97.5 F L Pulse Rate 78 81 Pulse Rate [Left Pulse Oximeter] 81 Respiratory Rate 16 16 16 Blood Pressure 110/75 102/61 Blood Pressure [Left Arm] 102/61 Pulse Oximetry 93 94 94 Oxygen Delivery Method Room Air Room Air Room Air Oxygen Flow Rate 0 0 0 01/22/25 01:42 01/22/25 04:53 Temperature 97.5 F L Pulse Rate Pulse Rate [Left Pulse Oximeter] 80 Respiratory Rate 16 Blood Pressure Blood Pressure [Left Arm] 120/71 Pulse Oximetry 97 95 Oxygen Delivery Method Room Air Room Air Oxygen Flow Rate Assessment and Plan Assessment and plan (1) History of open reduction and internal fixation (ORIF) procedure: Problem details: Left hip fracture ORIF. Dr. Loco, 01/21/25 Status: Acute Assessment and Plan: Plan for discharge is to a intermediate facility, and when they meets discharge criteria. DVT prophylaxis upon discharge include Xarelto 10 mg daily for 35 days Remove dressing 1 week. Observe wound and phone Orthopedics with any questions or concerns Return to clinic in4-6 weeks with surgeon Minimize narcotic use. Wean off and discontinue soon as possible. Weightbear as tolerated left lower extremity Attend PT and OT at intermediate facility daily. Orthopedics will not round over this weekend, unless Rosie has any concerns, please call JESSICA Rea pulmonary function technician. For Rosie is awaiting intermediate facility placement Medications that will be sent to her pharmacy per orthopedics include oxycodone, senna, Xarelto once a pharmacy is known.
--- NOTE | 2025-01-22 11:46 | PC.SOCIAL ---
Addendum entered by JANICE Sylvester 01/22/25 17:16: Discharge planning: The pt was updated that [facility] is reviewing her referral. Social work to follow-up as needed. Addendum entered by JANICE Sylvester 01/22/25 15:50: Discharge planning: [facility] is reviewing pt's referral, but will not be able to give an answer on acceptance or not until Saturday. Social work to follow-up as needed. Original Note: Discharge planning: [employer] i farmworker secure emailed pt's referral for short-term rehab to Kareen Camacho and Arun Godoy at [facility] this morning after therapy notes were completed. Social work to follow-up as needed.
--- NOTE | 2025-01-22 12:02 | PM.IMPN1 ---
Progress Note: A&P Assessment and plan (1) Closed intertrochanteric fracture: Problem details: X ray , Lt hip: There is a mildly displaced intertrochanteric fracture. No other displaced injuries are identified. 3 POD#1 s/p Left hip fracture ORIF. Dr. Loco, 01/21/25 Continue therapies, pain management as needed student support services director assisting with SNF placement Status: Acute (2) Pre-op evaluation: Problem details: -patient is able to exercise without shortness of breath or chest discomfort, no baseline symptoms. -EKG is sinus rhythm with right bundle branch block, no previous EKG to compare. No ischemic changes. -chest x-ray unremarkable. -will hold her lisinopril-hydrochlorothiazide tablet tomorrow morning -patient optimized for surgery. Status: Acute (3) Fall: Problem details: Slipped on ice, no syncope Status: Acute (4) Osteoporosis: Problem details: On alendronate Status: Acute (5) Rheumatoid arthritis: Problem details: On methotrexate, last dose was on Saturday Status: Acute (6) Sciatica: Problem details: Her doctor prescribed a short course of prednisone 10 mg qd for a week Patient took her prednisone does this morning, she mentioned that she finishes the course in 2 days Patient denies frequent use of steroids for treatment of any of her medical problems. Resume prednisone tomorrow morning. Status: Acute (7) Hypertension: Problem details: Continue lisinopril-hydrochlorothiazide postoperatively Status: Acute (8) Hypothyroidism: Problem details: On levothyroxine Status: Acute Plan Awaiting SNF placement Time Spent With Patient Total time spent: Today I spent 45 minutes seeing the patient, discussing the patient with ER staff, reviewing Expanse and Epic notes/diagnostics, discussing the care plan with our team that includes social work, PT/OT, pharmacy, RT, group home and documenting my impressions and plan in the medical record. Subjective Date Seen: 01/22/25 Interval history: Patient is POD#1 s/p Left hip fracture ORIF. Dr. Loco, 01/21/25. Reports feeling pretty good this morning. Pain has improved after receiving medication. Has been up with therapies already this morning reporting that went well. Feels good walking. Denies headache or dizziness. Denies chest pain or shortness of breath. Tolerating orals without nausea vomiting. Awaiting SNF placement for rehab Exam Narrative: Exam Narrative: PHYSICAL EXAM General: Pleasant, conversant, NAD Cardiovascular: RRR, S1S2. No pitting edema Pulmonary: CTA bilaterally without rhonchi, rales, expiratory wheezes. No dyspnea on room air Neurological: Alert, answering questions appropriately, cranial nerves intact, no focal findings Extremities: Postoperative dressing in place. Neurovascularly intact Skin: Warm, dry. Const: Vital Signs, click to edit/add: Vital Signs - 24 hr 01/21/25 15:47 01/21/25 15:50 01/21/25 15:55 Temperature 98.5 F Pulse Rate 65 69 71 Pulse Rate [Left P ulse Oximeter] Respiratory Rate 12 16 16 Blood Pressure 94/56 L 97/52 L 89/49 L Blood Pressure [Le ft Arm] Pulse Oximetry 97 86 L 98 Oxygen Delivery Me thod Room Air Aerosol Mask Oxygen Flow Rate 6 01/21/25 16:00 01/21/25 16:05 01/21/25 16:10 Temperature Pulse Rate 61 79 70 Pulse Rate [Left P ulse Oximeter] Respiratory Rate 16 19 16 Blood Pressure 93/48 L 104/63 93/55 L Blood Pressure [Le ft Arm] Pulse Oximetry 99 98 95 Oxygen Delivery Me thod Aerosol Mask Room Air Room Air Oxygen Flow Rate 6 0 0 01/21/25 16:15 01/21/25 16:30 01/21/25 16:45 Temperature 98.2 F 97.0 F L 97.0 F L Pulse Rate 75 68 83 Pulse Rate [Left P ulse Oximeter] Respiratory Rate 14 14 14 Blood Pressure 91/53 L 93/48 L 100/60 Blood Pressure [Le ft Arm] Pulse Oximetry 98 97 95 Oxygen Delivery Me thod Room Air Room Air Oxygen Flow Rate 0 01/21/25 17:00 01/21/25 17:15 01/21/25 17:30 Temperature 97.0 F L 97.2 F L 97.5 F L Pulse Rate 70 70 65 Pulse Rate [Left P ulse Oximeter] Respiratory Rate 14 14 16 Blood Pressure 112/60 111/62 110/68 Blood Pressure [Le ft Arm] Pulse Oximetry 95 97 95 Oxygen Delivery Me thod Oxygen Flow Rate 01/21/25 18:00 01/21/25 18:30 01/21/25 19:33 Temperature 97.5 F L 97.8 F 97.2 F L Pulse Rate 77 82 81 Pulse Rate [Left P ulse Oximeter] Respiratory Rate 14 16 14 Blood Pressure 108/88 110/70 100/71 Blood Pressure [Le ft Arm] Pulse Oximetry 96 95 93 Oxygen Delivery Me thod Room Air Room Air Oxygen Flow Rate 0 01/21/25 19:59 01/21/25 20:35 01/21/25 21:31 Temperature 97.2 F L 97.2 F L 97.5 F L Pulse Rate 84 78 Pulse Rate [Left P ulse Oximeter] 78 Respiratory Rate 14 16 16 Blood Pressure 123/64 110/75 Blood Pressure [Le ft Arm] 100/71 Pulse Oximetry 93 94 93 Oxygen Delivery Me thod Room Air Room Air Room Air Oxygen Flow Rate 0 0 0 01/21/25 22:32 01/21/25 22:35 01/22/25 01:42 Temperature 97.5 F L 97.5 F L Pulse Rate 81 Pulse Rate [Left P ulse Oximeter] 81 Respiratory Rate 16 16 Blood Pressure 102/61 Blood Pressure [Le ft Arm] 102/61 Pulse Oximetry 94 94 97 Oxygen Delivery Me thod Room Air Room Air Room Air Oxygen Flow Rate 0 0 01/22/25 04:53 01/22/25 07:00 01/22/25 07:00 Temperature 97.5 F L 97.2 F L Pulse Rate Pulse Rate [Left P ulse Oximeter] 80 77 Respiratory Rate 16 18 18 Blood Pressure Blood Pressure [Le ft Arm] 120/71 116/64 Pulse Oximetry 95 95 95 Oxygen Delivery Me thod Room Air Room Air Room Air Oxygen Flow Rate Labs Labs: Laboratory Results - last 24 hr 01/22/25 06:06 WBC 17.33 H RBC 3.10 L Hgb 10.2 L Hct 30.2 L MCV 97 MCH 33 MCHC 34 Plt Count 269 Sodium 133 L Potassium 3.9 Chloride 102 Carbon Dioxide 26 Anion Gap 5 L BUN 13 Creatinine 0.5 Estimated Creat Clear 36.12 Estimated GFR 97 Glucose 118 H Calcium 8.0 L
--- NOTE | 2025-01-22 19:15 | PC.NURSE ---
End of shift [id number] ? Pt awake, alert, and oriented x 4. Very pleasant and eager to participate in care. Up with PT and OT , standby assistance and walker/ gait belt. Tolerating RA, regular diet/fluids. Reported pain in L hip as 5-6/10. Medication given per MAR with pt reporting improved comfort and ice pack in place. Dressing CDI, pedal pulse present. Urge incontinence noted during shift, pt reports this is baseline occurrence for her. Family at bedside. Pt appears to be resting comfortably in bed with call light within reach at end of shift.
--- NOTE | 2025-01-22 23:28 | PM.IMPN1 ---
Progress Note: A&P Assessment and plan (1) History of open reduction and internal fixation (ORIF) procedure: Problem details: Left hip fracture ORIF. Dr. Loco, 01/21/25. No complications. Continue VT prophylaxis with rivaroxaban Status: Acute (2) Rheumatoid arthritis: Problem details: On methotrexate and prednisone, last dose of methotrexate was on Saturday Status: Acute (3) Osteoporosis: Problem details: On alendronate Status: Acute (4) Hypertension: Problem details: Continue lisinopril-hydrochlorothiazide postoperatively Status: Acute (5) Hypothyroidism: Problem details: On levothyroxine Status: Acute (6) Sciatica: Problem details: Her doctor prescribed a short course of prednisone 10 mg qd for a week Patient took her prednisone does this morning, she mentioned that she finishes the course in 2 days Patient denies frequent use of steroids for treatment of any of her medical problems. Resume prednisone tomorrow morning. Status: Acute Assessment and Plan: Continue in hospital for management of pain, disability, monitoring for complications. Total time spent today is 35 minutes in coordination of care and discussing with patient and other providers management of the above problems Subjective Date Seen: 01/23/25 Interval history: Admission HPI: Rosie Reynaga is a 74 year old female with past medical history of rheumatoid arthritis on methotrexate, hypertension, hypothyroidism and osteoporosis who is being admitted for left hip fracture. Pt states that she was out going to the mailbox today and slipped & fell on her left hip. Pt states that she did not faint and was not lightheaded, she was awake all the time and that she did not hit her head. Patient denies shortness of breath, chest pain or lightheadedness. Patient does not have history of cardiac or pulmonary diseases. She is able to walk and exercise without any symptoms. Denied kidney problems. On admission patient was found to have a left intertrochanteric femur fracture. She was taken to the OR January [address] Loco for ORIF. There were no complications. Estimated 100 mL blood loss. Postoperatively she has been generally doing well. She has had improvement in pain and mobility. She has been eating well. No other complications or concerns. She has had some drop in her hemoglobin. She is on rivaroxaban 10 mg daily for VTE prophylaxis. Exam Narrative: Exam Narrative: She is alert pleasant and in no distress. She is oriented to her circumstances. Respirations are clear to auscultation. Cardiovascular: S1, S2, regular rate and rhythm. No murmur gallop or rub. Abdomen: Bowel sounds active. Abdomen is soft without tenderness or mass. Left hip with moderate amount of swelling and bruising over the left hip and thigh. No redness or warmth. Distally she has intact pulses and sensation. Const: Vital Signs, click to edit/add: Vital Signs - 24 hr 01/22/25 01:42 01/22/25 04:53 01/22/25 07:00 Temperature 97.5 F L Pulse Rate [Left P ulse Oximeter] 80 Respiratory Rate 16 18 Blood Pressure [Le ft Arm] 120/71 Pulse Oximetry 97 95 95 Oxygen Delivery Me thod Room Air Room Air Room Air Oxygen Flow Rate 01/22/25 07:00 01/22/25 15:00 01/22/25 18:15 Temperature 97.2 F L 98.0 F Pulse Rate [Left P ulse Oximeter] 77 79 Respiratory Rate 18 18 18 Blood Pressure [Le ft Arm] 116/64 116/66 Pulse Oximetry 95 94 94 Oxygen Delivery Me thod Room Air Room Air Room Air Oxygen Flow Rate 01/22/25 19:00 01/22/25 22:33 01/22/25 22:33 Temperature 98.1 F 98.1 F Pulse Rate [Left P ulse Oximeter] 83 89 Respiratory Rate 16 18 18 Blood Pressure [Le ft Arm] 113/66 113/60 Pulse Oximetry 93 92 92 Oxygen Delivery Me thod Room Air Room Air Room Air Oxygen Flow Rate 0 0 Documenting provider has reviewed patient's vital signs: yes Labs Labs: Laboratory Results - last 24 hr 01/22/25 06:06 WBC 17.33 H RBC 3.10 L Hgb 10.2 L Hct 30.2 L MCV 97 MCH 33 MCHC 34 Plt Count 269 Sodium 133 L Potassium 3.9 Chloride 102 Carbon Dioxide 26 Anion Gap 5 L BUN 13 Creatinine 0.5 Estimated Creat Clear 36.12 Estimated GFR 97 Glucose 118 H Calcium 8.0 L
[2025-01-23 03:00] VITALS: BP 110/65; RESP 16; O2SAT 96
--- NOTE | 2025-01-23 05:39 | PC.NURSE ---
[id number] Pt sletp well during night, L hip dressings x3 C/D/I, ice to site. ambulated halls x1, walker/GB/1A during evening, tolerated activity very well. pain controlled with scheduled and prn po pain medications, rating 5/10 and states this is tolerable.
[2025-01-23] MEDS: OXYCODONE 5 MG TABLET PO ×3 (06:00→18:35)
[2025-01-23] MEDS: ACETAMINOPHEN 325 MG TABLET 650 MG PO ×3 (06:01→18:35)
[2025-01-23 06:33] LABS: Hematocrit 33.2 % (33.0-51.0); Hemoglobin* 10.9 gm/dL (12.0-16.0); Mean Corpuscular HGB Conc 33 gm/dL (32-36); Mean Corpuscular Hemoglobin 32 pg (26-34); Mean Corpuscular Volume 99 fL (80-100); Platelet Count* 295 K/uL (140-440); Red Blood Count 3.36 m/uL (4.00-5.20); White Blood Count* 14.03 K/uL (4.50-11.00)
[2025-01-23 06:45] LABS: Slide Review Reflex No
[2025-01-23 06:47] LABS: Chloride* 104 mmol/L (96-114)
[2025-01-23 06:48] LABS: Potassium* 3.6 mmol/L (3.6-5.1); Sodium* 137 mmol/L (135-149)
[2025-01-23 06:51] LABS: Anion Gap 6 mEq/L (7-15); Blood Urea Nitrogen* 16 mg/dL (7-30); Calcium* 7.8 mg/dL (8.4-10.6); Carbon Dioxide* 27 mmol/L (20-32); Creatinine* 0.6 mg/dL (0.5-1.5); Est. Creatinine Clearance* 36.12; Estimated Glomerular Filt Rate 93 ml/min; Glucose* 89 mg/dL (60-115)
[2025-01-23 08:00] VITALS: BP 121/62; RESP 16; TEMP 36.8; O2SAT 96
[2025-01-23] MEDS: RIVAROXABAN 10 MG TABLET PO (09:31)
[2025-01-23] MEDS: SENNOSIDES 1 TAB TABLET 2 TAB PO ×2 (09:31→20:46)
[2025-01-23] MEDS: hydroCHLOROthiazide 25 MG TABLET PO (09:31)
[2025-01-23] MEDS: lisinopriL 20 MG TABLET PO (09:31)
[2025-01-23 13:09] VITALS: BP 118/57; PULSE 74; RESP 18; TEMP 36.4; O2SAT 96
[2025-01-23 15:00] VITALS: BP 115/61; PULSE 74; PULSE 83; RESP 16; TEMP 36.7; O2SAT 98
--- NOTE | 2025-01-23 19:17 | PC.NURSE ---
The patient is pleasant and doing well. VSS on RA, reports pain throughout the day at a tolerable 4/10 with PRN and scheduled pain medication as well as ice to L hip. 3 mepilexs to L hip, 2+ pitting edema in L thigh, no ecchymosis present. The patient would like to shower tomorrow. Appetite is reassuring. The patients family visited today. Call light within reach. Evelyn VILLAGRAN BSN
[2025-01-23 19:24] VITALS: BP 120/69; PULSE 79; RESP 16; TEMP 37.1; O2SAT 94
[2025-01-24] VITALS (8 sets, daily range): BP systolic 93–124; BP diastolic 41–77; PULSE 73–94; RESP 16–18; TEMP 36.3–36.9; O2SAT 94–97
[2025-01-24] MEDS: OXYCODONE 5 MG TABLET PO (06:10)
[2025-01-24] MEDS: ACETAMINOPHEN 325 MG TABLET 650 MG PO ×4 (06:10→23:54)
[2025-01-24 06:50] LABS: Hematocrit 31.6 % (33.0-51.0); Hemoglobin* 10.6 gm/dL (12.0-16.0); Mean Corpuscular HGB Conc 34 gm/dL (32-36); Mean Corpuscular Hemoglobin 33 pg (26-34); Mean Corpuscular Volume 98 fL (80-100); Platelet Count* 285 K/uL (140-440); Red Blood Count 3.24 m/uL (4.00-5.20); White Blood Count* 13.15 K/uL (4.50-11.00)
[2025-01-24 06:52] LABS: Slide Review Reflex No
--- NOTE | 2025-01-24 06:59 | PC.NURSE ---
End of shift [id number]: A&O pleasant and cooperative. VSS. Rating pain at a consistent 4/10 overnight. Dressings to hip c/d/i. +cms w/ strong plantar/dorsi flexion. Right quad swollen. Intermittent ice to site. Tolerating diet. Denies n/v. Ambulating to bathroom w/ sba walker and GB. Tolerates well. Using call light appropriately.
[2025-01-24 07:04] LABS: Potassium* 3.7 mmol/L (3.6-5.1); Sodium* 131 mmol/L (135-149)
[2025-01-24 07:07] LABS: Blood Urea Nitrogen* 10 mg/dL (7-30); Creatinine* 0.5 mg/dL (0.5-1.5); Est. Creatinine Clearance* 36.12; Estimated Glomerular Filt Rate 97 ml/min
[2025-01-24] MEDS: RIVAROXABAN 10 MG TABLET PO (08:56)
[2025-01-24] MEDS: hydroCHLOROthiazide 25 MG TABLET PO (08:56)
[2025-01-24] MEDS: SENNOSIDES 1 TAB TABLET 2 TAB PO ×2 (08:56→20:07)
[2025-01-24] MEDS: lisinopriL 20 MG TABLET PO (08:56)
[2025-01-24] MEDS: ONDANSETRON 2 MG/ML inj 4 MG IVP (11:17)
--- NOTE | 2025-01-24 16:05 | PM.IMPN1 ---
Progress Note: A&P Assessment and plan (1) History of open reduction and internal fixation (ORIF) procedure: Problem details: Left hip fracture ORIF. Dr. Loco, 01/21/25. No complications. Continue VT prophylaxis with rivaroxaban Status: Acute (2) Rheumatoid arthritis: Problem details: On methotrexate and prednisone, last dose of methotrexate was on Saturday Status: Acute (3) Osteoporosis: Problem details: On alendronate Status: Acute (4) Hypertension: Problem details: Continue lisinopril-hydrochlorothiazide postoperatively Status: Acute (5) Hypothyroidism: Problem details: On levothyroxine Status: Acute (6) Sciatica: Problem details: Her doctor prescribed a short course of prednisone 10 mg qd for a week Patient took her prednisone does this morning, she mentioned that she finishes the course in 2 days Patient denies frequent use of steroids for treatment of any of her medical problems. Resume prednisone tomorrow morning. Status: Acute Plan Continue in hospital for rehabilitation and management of postop care and therapy. Anticipate discharge to detention tomorrow for ongoing rehab Time Spent With Patient Total time spent: Total time spent today is 20 minutes in coordination of care and evaluation and management. Subjective Date Seen: 01/24/25 Interval history: Admission HPI: Rosie Reynaga is a 74 year old female with past medical history of rheumatoid arthritis on methotrexate, hypertension, hypothyroidism and osteoporosis who is being admitted for left hip fracture. Pt states that she was out going to the mailbox today and slipped & fell on her left hip. Pt states that she did not faint and was not lightheaded, she was awake all the time and that she did not hit her head. Patient denies shortness of breath, chest pain or lightheadedness. Patient does not have history of cardiac or pulmonary diseases. She is able to walk and exercise without any symptoms. Denied kidney problems. On admission patient was found to have a left intertrochanteric femur fracture. She was taken to the OR January [address] Loco for ORIF. There were no complications. Estimated 100 mL blood loss. Postoperatively she has been generally doing well. She has had improvement in pain and mobility. She has been eating well. No other complications or concerns. She has had some drop in her hemoglobin. She is on rivaroxaban 10 mg daily for VTE prophylaxis. 01/24/2025: Patient reports doing generally fairly well today. She still reports the stiffness and tightness in her hip but the pain is manageable. She reports making progress with ambulation. She has no other concerns. No dyspnea, nausea, abdominal pain. Bowels are working normally. Exam Narrative: Exam Narrative: She is alert and appears in no distress. Speech is normal. Mood and affect are bright. Respirations are clear to auscultation. Cardiovascular: S1, S2, regular rate and rhythm. Hip is examined she has moderate bruising over her lateral thigh extending now down below her knee. Trace edema and no tenderness. Intact motion and sensation and pulses in both feet and ankles Const: Vital Signs, click to edit/add: Vital Signs - 24 hr 01/23/25 19:24 01/24/25 00:00 01/24/25 00:00 Temperature 98.8 F Pulse Rate [Left P ulse Oximeter] 79 Respiratory Rate 16 16 16 Blood Pressure [Le ft Arm] 120/69 Blood Pressure [Ri ght Arm] Pulse Oximetry 94 Oxygen Delivery Me thod Room Air Room Air 01/24/25 03:00 01/24/25 07:42 01/24/25 07:42 Temperature 98.2 F 98.0 F Pulse Rate [Left P ulse Oximeter] 88 79 Respiratory Rate 16 18 18 Blood Pressure [Le ft Arm] 114/57 L Blood Pressure [Ri ght Arm] 124/41 L Pulse Oximetry 94 96 96 Oxygen Delivery Me thod Room Air Room Air Room Air 01/24/25 11:24 Temperature 98.2 F Pulse Rate [Left P ulse Oximeter] 94 Respiratory Rate 16 Blood Pressure [Le ft Arm] 116/68 Blood Pressure [Ri ght Arm] Pulse Oximetry 95 Oxygen Delivery Me thod Room Air Documenting provider has reviewed patient's vital signs: yes Labs Labs: Laboratory Results - last 24 hr 01/24/25 05:52 WBC 13.15 H RBC 3.24 L Hgb 10.6 L Hct 31.6 L MCV 98 MCH 33 MCHC 34 Plt Count 285 Sodium 131 L Potassium 3.7 BUN 10 Creatinine 0.5 Estimated Creat Clear 36.12 Estimated GFR 97
[2025-01-25 05:24] VITALS: BP 112/74; PULSE 91; RESP 16; TEMP 36.4; O2SAT 96
[2025-01-25] MEDS: ACETAMINOPHEN 325 MG TABLET 650 MG PO (05:25)
--- NOTE | 2025-01-25 06:24 | PC.NURSE ---
End of shift [id number]: A&O pleasant and cooperative. VSS.? Dressings to hip c/d/i. +cms w/ strong plantar/dorsi flexion. Right quad swollen and bruised. Intermittent ice to site. Rating pain 4/10 throughout shift.see eMAR for interventions. Tolerating diet. Denies n/v. Ambulating to bathroom w/ sba walker and GB. Tolerates well. Using call light appropriately.
[2025-01-25 07:30] VITALS: BP 133/85; PULSE 82; RESP 18; TEMP 36.6; O2SAT 98
[2025-01-25] MEDS: SENNOSIDES 1 TAB TABLET 2 TAB PO (08:39)
[2025-01-25] MEDS: RIVAROXABAN 10 MG TABLET PO (08:39)
[2025-01-25] MEDS: lisinopriL 20 MG TABLET PO (08:39)
[2025-01-25] MEDS: hydroCHLOROthiazide 25 MG TABLET PO (08:39)
[2025-01-25 11:58] LABS: SARS Antigen* Negative (Negative)
--- NOTE | 2025-01-25 15:10 | PM.DS1 ---
DS: Providers Provider Date Seen: 01/25/25 Date of admission: 01/20/25 16:42 Primary care physician: Darling Wharton MD Admitting Clinician: Sarah Nava MD Date of Discharge: 01/25/25 DS: Diagnosis Discharge Diagnosis (1) History of open reduction and internal fixation (ORIF) procedure: Status: Acute Problem details: Left hip fracture ORIF. Dr. Loco, 01/21/25. No complications. Continue VT prophylaxis with rivaroxaban for 1 month. Routine postoperative pain management and therapy (2) Rheumatoid arthritis: Status: Acute Problem details: On methotrexate and prednisone, last dose of methotrexate was on Saturday (3) Osteoporosis: Status: Acute Problem details: On alendronate and calcium (4) Hypertension: Status: Acute Problem details: Resume lisinopril and hydrochlorothiazide (5) Hypothyroidism: Status: Acute Problem details: On levothyroxine (6) Sciatica: Status: Acute Problem details: Had a short course of prednisone 10 mg daily prior to admission. DS: Summary Hospital Course Hospital Course: Admission HPI: Rosie Reynaga is a 74 year old female with past medical history of rheumatoid arthritis on methotrexate, hypertension, hypothyroidism and osteoporosis who is being admitted for left hip fracture. Pt states that she was out going to the mailbox today and slipped & fell on her left hip. Pt states that she did not faint and was not lightheaded, she was awake all the time and that she did not hit her head. Patient denies shortness of breath, chest pain or lightheadedness. Patient does not have history of cardiac or pulmonary diseases. She is able to walk and exercise without any symptoms. Denied kidney problems. On admission patient was found to have a left intertrochanteric femur fracture. She was taken to the OR January [address] Loco for ORIF. There were no complications. Estimated 100 mL blood loss. Postoperatively she has been generally doing well. She has had improvement in pain and mobility. She has been eating well. No other complications or concerns. She has had some drop in her hemoglobin. She is on rivaroxaban 10 mg daily for VTE prophylaxis. Patient has done well postoperatively. Mobility is improved, pain is improved. She has had no other complications. Time Spent with Patient Time attestation: Total time spent providing and/or coordinating discharge services: 35 minutes Time spent: Greater than 30 minutes Exam Narrative: Exam Narrative: She is alert and appears in no distress. Mood and affect are bright. Breathing is unlabored. Bruising on the left hip and thigh noted. She moves her lower extremities well. Const: Vital Signs, click to edit/add: Vital Signs - 24 hr 01/24/25 16:09 01/24/25 16:09 01/24/25 20:02 Temperature 98.4 F 97.4 F L Pulse Rate [Left P ulse Oximeter] 73 78 Respiratory Rate 16 16 18 Blood Pressure [Le ft Arm] 93/77 Blood Pressure [Ri ght Arm] 107/64 Pulse Oximetry 97 97 94 Oxygen Delivery Me thod Room Air Room Air 01/24/25 23:22 01/24/25 23:25 01/25/25 05:24 Temperature 97.6 F Pulse Rate [Left P ulse Oximeter] 91 Respiratory Rate 16 16 16 Blood Pressure [Le ft Arm] 112/74 Blood Pressure [Ri ght Arm] Pulse Oximetry 96 Oxygen Delivery Me thod Room Air 01/25/25 07:30 01/25/25 07:30 Temperature 97.9 F Pulse Rate [Left P ulse Oximeter] 82 Respiratory Rate 18 18 Blood Pressure [Le ft Arm] 133/85 Blood Pressure [Ri ght Arm] Pulse Oximetry 98 98 Oxygen Delivery Me thod Room Air Room Air Documenting provider has reviewed patient's vital signs: yes DS: Data Data Completed and Pending Labs on day of discharge: Labs from last 24 hours 01/25/25 11:35 SARS-CoV-2 Ag (Rapid) Negative Discharge Plan Discharge Disposition: [facility] Date of Admission: 01/20/25 16:42 Attending Provider on Discharge: Asa Yarbrough Primary Care Provider: Darling Wharton Discharge Medications: New sennosides [senna] 8.6 mg tablet 17.2 mg PO BID Qty: 60 0RF oxycodone 5 mg tablet 5 mg PO Q6H PRN (Reason: pain) Qty: 30 0RF Rx Instructions: 2.5 mg for moderate pain every 6 hours as needed and 5 mg pain every 6 hours as needed for severe pain as needed Xarelto 10 mg tablet 10 mg PO DAILY Qty: 30 0RF Rx Instructions: for 35 days Continued alendronate 70 mg tablet 70 mg PO QWEEK Patient Comments: Sundays levothyroxine 88 mcg tablet 88 mcg PO DAILY methotrexate sodium 2.5 mg tablet 15 mg PO QWEEK Patient Comments: Mondays lisinopril-hydrochlorothiazide 20-25 mg tablet 1 tab PO DAILY folic acid 1 mg tablet 1 mg PO DAILY prednisone 20 mg tablet 10 mg PO DAILY Patient Comments: Take 2 tabs BY MOUTH IN THE MORNING daily WITH FOOD for 3 days, 1 tab daily for 3 days, and 1/2 tab daily for 4 days.* Rx Instructions: 2 DAYS LEFT, 01/21/25 AND 01/22/25 calcium 500 mg tablet 500 mg PO DAILY acetaminophen 500 mg tablet 500 - 1,000 mg PO Q6H PRN Discharge Orders: Discharge Order (Routine); Ordered 01/25/25 Ordered By: Sujata Patel Additional Instructions: Staff please make appt for Rosie to see Dr Loco in 4-6 weeks Activity Level: Weight Bearing as Tolerated Activity Detail: PT and OT at [facility] daily. Plan for discharge is today, to [facility] DVT prophylaxis upon discharge includes Xarelto 10mg daily for 35 days Remove dressing 1 week. Observe wound and phone Orthopedics with any questions or concerns Use Ice on operative hip unrestricted. Return to clinic in 4-6 weeks with surgeon Minimize narcotic use. Wean off and discontinue soon as possible. Weightbear as tolerated left lower extremity Discharge Diet: Regular Follow Up Appointments: Darling Wharton MD [Primary Care Provider] - Forms: [facility] Info Instructions Admit to: SNF Discharge Potential: Good Length of Stay: <30 days Can use facility standing orders?: Yes Code Status: Full Code TEDs: Bilateral Knee Rehab Potential: Good Therapy: Physical Therapy and Occupational Therapy Therapy Orders: Evaluate and Treat Oxygen: No
--- NOTE | 2025-01-25 16:03 | PC.SOCIAL ---
Discharge planning: Pt discharged to [facility] today for short-term rehab. Discharge orders were secure emailed to Betzaida at [facility] [place]. Pre-admission screening was also completed and sent to Betzaida at [facility]. [id number]. The pt also had a COVID test that was done and that came back negative(per [facility] request). The test results were sent to Betzaida at [facility] [place] via secure email. Pt was provided a copy of The Important Message from Medicare form and had no concerns with discharging from the hospital or wanting to appeal her discharge. Social work to follow-up as needed.
== END 2025-01-25 13:32 | DRG 481 ==
LOC: ED 14:49 → MEDSURG 16:29
PROVIDERS: Family Medicine; Orthopaedic Surgery; Admitting Provider Student in an Organized Health Care Education/Training Program; Emergency Provider Family Medicine; PCP Family Medicine; Visit Provider Student in an Organized Health Care Education/Training Program
PROC: 0QS706Z Reposition Left Upper Femur with Intramedullary Internal Fixation Device, Open Approach (ICD-10-PCS; CPT 27245; principal; 2025-01-21 13:15)
DX: S72.142A Displaced intertrochanteric fracture of left femur, initial encounter for closed fracture (principal); R71.0 Precipitous drop in hematocrit; G89.18 Other acute postprocedural pain; M54.32 Sciatica, left side; M06.9 Rheumatoid arthritis, unspecified; Z79.631 Long term (current) use of antimetabolite agent; I10 Essential (primary) hypertension; I45.10 Unspecified right bundle-branch block; M81.0 Age-related osteoporosis without current pathological fracture; W01.0XXA Fall on same level from slipping, tripping and stumbling without subsequent striking against object, initial encounter; Y92.008 Other place in unspecified non-institutional (private) residence as the place of occurrence of the external cause; E03.9 Hypothyroidism, unspecified
CPT/HCPCS: 01210; 01230; 36415; 64450; 71045; 73502; 73552; 76000; 76942; 80048; 82565; 83735; 84132; 84295; 84520; 85025; 85027; 87426; 93005; 94761; 97110; 97116; 97161; 97165; 97530; 99100; 99140; 99285; A9270; C1713; J0690; J1100; J1644; J2250; J2270; J2371; J2405; J2704; J2795; J3010; J7030; J7120; J7512